=== PATIENT | female | born 1950 | race Caucasian/White ===

== ENCOUNTER → 2016-07-12 | Outpatient (CLI) | payer OTHER ==
[~2016-07-12] MED LIST: ADVIN25/60 INH; ASPI81TA21 PO; CEFD300C2 PO; CZR50 PO; LOSA1TAB38 PO; METO1TAB54 PO; NRV5 PO; OMEP20CA9 PO; ONDA4TAB7 SL; OXGN; PRED5PAK3 PO; TNR50 PO; UMEC1AER INH; VNTHFA/IN INH
[2016-07-12 12:57] LABS: BLOOD UREA NITROGEN 10 mg/dl (7-18); BUN/CREATININE RATIO 15.7 (10-20); CARBON DIOXIDE 25 mmol/L (21-32); CHLORIDE 98 mmol/L (98-107); CREATININE 0.61 mg/dl (0.60-1.20); GLUCOSE 99 mg/dl (70-99); SODIUM 132 mmol/L (136-145)
--- NOTE | 2016-07-19 11:22 | CODING QUERY MEDICAL NECESSITY ---
SUPPORTING DIAGNOSIS NEEDED Dr. Hanna, A supporting diagnosis is required for the test/procedure performed on this patient in order for us to be reimbursed by the patient's insurance. Please provide a supporting diagnosis for the following test/procedure listed below next to the test name along with your signature. *If there is no additional diagnosis for this patient that would support the following test/procedure please document that below next to the test/procedure. Test(s)/Procedure(s) that require a supporting diagnosis: * ([id number]) VITAMIN D ASSAY DIAGNOSIS: DATE OF SERVICE: 07/12/16 Provider Signature: Date: Thank you Jacek Torres [facility] Information Management Once completed, please kindly fax back to [phone] For questions please call [phone]
== END | disposition home or self-care (01) ==
LOC: C.LABPVFM 09:40
PROVIDERS: ATTEND Nurse Practitioner
DX: G57.91 Unspecified mononeuropathy of right lower limb (principal); I10 Essential (primary) hypertension; E55.9 Vitamin D deficiency, unspecified

== ENCOUNTER 2016-11-01 13:15 | Emergency (ER) | payer OTHER ==
[~2016-11-01] VITALS: Ht 152.4 cm; Wt 72.1 kg
[~2016-11-01 13:15] MED LIST changes: -CEFD300C2 PO; -LOSA1TAB38 PO; -OXGN; -UMEC1AER INH; -VNTHFA/IN INH
[2016-11-01 13:23] VITALS: Ht 152.4 cm; Wt 72.1 kg
[2016-11-01] MEDS ORDERED: ACETAMINOPHEN 500 MG TAB PO STA (14:00)
[2016-11-01] MEDS ORDERED: SODIUM CHLORIDE 0.9% 1000ML 1,000 ML IV STA (14:00)
[2016-11-01 14:39] LABS: BASO % 0.2 %; BASO ABS # 0.03 K/uL (0-0.2); COMPLETE YES; EOS % 0.2 %; HEMATOCRIT 41.3 % (37-47); IG% 0.8 %; LYMPH % 3.3 %; LYMPH ABS # 0.44 K/uL (1.2-3.4); MEAN CORPUSCULAR HEMOGLOBIN 29.3 pg (25-34); MEAN CORPUSCULAR HGB CONC 32.9 g/dl (32-36); MEAN PLATELET VOLUME 10.1 fL (7.4-10.4); MONO % 4.7 %; NEUT % 90.8 %; PLATELET COUNT 166 K/uL (130-400); RED BLOOD COUNT 4.64 M/uL (4.2-5.4); WHITE BLOOD COUNT 13.14 K/uL (4.8-10.8)
[2016-11-01] MEDS ORDERED: VNTHFA/IN INH (14:43)
[2016-11-01] MEDS ORDERED: LOSA1TAB38 PO (14:43)
[2016-11-01] MEDS ORDERED: OXGN (14:43)
[2016-11-01] MEDS ORDERED: UMEC1AER INH (14:43)
[2016-11-01 14:52] LABS: INR 1.1 (0.9-1.1); PARTIAL THROMBOPLASTIN RATIO 1.1; PROTHROMBIN TIME (PATIENT) 11.9 SECONDS (9.0-12.0)
--- NOTE | 2016-11-01 14:58 | DIAGNOSTIC IMAGING REPORT ---
CHEST ONE VIEW PORTABLE CLINICAL HISTORY: Weakness COMPARISON STUDY: 04/12/2016 FINDINGS: The heart is borderline enlarged. There is been resolution of previous identified left midlung zone airspace opacities. Increased density visualized towards the lung bases, likely relates to chest wall artifact.[ If there is clinical concern over the presence of a lower lobe pneumonia, then a PA and lateral study should be obtained in follow-up. There is no failure. IMPRESSION: 1. Interval resolution of the left upper lobe pneumonia 2. Borderline cardiomegaly 3. Increased attenuation of lung bases, likely related to technical factors. Electronically signed by: Cyrus Benavides M.D. 11/01/2016 2:56 PM Dictated Date/Time: 11/01/2016 2:55 PM
[2016-11-01 15:03] LABS: BUN/CREATININE RATIO 17.5 (10-20); CALCIUM 8.9 mg/dl (8.5-10.1); CREATININE 0.69 mg/dl (0.60-1.20); MAGNESIUM 1.7 mg/dl (1.8-2.4); POTASSIUM 3.1 mmol/L (3.5-5.1)
[2016-11-01 15:11] LABS: CKMB/CK RATIO 2.4 (0-3.0); THYROID STIMULATING HORMONE 2.43 uIu/ml (0.300-4.500)
[2016-11-01 15:39] VITALS: O2SAT 93
[2016-11-01] MEDS ORDERED: SODIUM CHLORIDE 0.9% 500ML 500 ML IV STA (17:24)
--- NOTE | 2016-11-01 18:24 | DIAGNOSTIC IMAGING REPORT ---
CT OF THE ABDOMEN AND PELVIS WITHOUT CONTRAST, STONE PROTOCOL CLINICAL HISTORY: Right flank pain. COMPARISON STUDY: CT of the abdomen and pelvis October 26, 2009. TECHNIQUE: Helical axial images of the abdomen and pelvis were obtained without IV or oral contrast according to renal stone protocol. FINDINGS: Visualized portions of the the lower chest partially visualize lingular opacity which favors atelectasis. The heart is moderately enlarged. There is no pneumatosis, free air or portal venous gas. There is no biliary ductal dilatation status post cholecystectomy. There is no evidence for a bowel obstruction. The appendix is normal. There is no ascites. No enlarged lymph nodes are identified on this unenhanced exam. The bladder is moderately distended. There is mild bilateral collecting system dilatation. There is mild bilateral perinephric infiltration, slightly greater on the right. No renal, ureteral or bladder calculi are identified. No suspicious skeletal lesions are identified. IMPRESSION: 1. No urinary calculi identified. Mild bilateral collecting system dilatation which could be related to moderate distention of the bladder. Mild bilateral perinephric infiltration, a nonspecific finding although an infectious process could have this appearance. 2. Moderate cardiomegaly. 3. Partially visualized lingular opacity which favors atelectasis. Electronically signed by: Jarrett Murray M.D. 11/01/2016 6:23 PM Dictated Date/Time: 11/01/2016 6:12 PM
[2016-11-01] MEDS ORDERED: CEFTRIAXONE SOD INJ 1 GM ADDVIAL IV STA (18:45)
[2016-11-01 18:57] VITALS: TEMP 36.9
[2016-11-01 19:10] LABS: URINE APPEARANCE CLEAR (CLEAR); URINE BILIRUBIN NEG (NEG); URINE COLOR YELLOW; URINE EPITHELIAL CELL AUTO 20-30 /lpf (0-5); URINE NITRITE POS (NEG); URINE SPECIFIC GRAVITY 1.007 (1.000-1.030); UROBILINOGEN NEG (NEG)
[2016-11-01 19:12] LABS: MANUAL MICROSCOPIC REQUIRED? NO; REVIEW REQ? NO
[2016-11-01] MEDS ORDERED: CEFD300C2 PO (19:27)
--- NOTE | 2016-11-01 19:34 | EMERGENCY ROOM VISIT NOTE ---
History Report prepared by Leif: Jayme Beatty Under the Supervision of: Dr. Quinten Barone M.D. First contact with patient: 13:35 Chief Complaint: OTHER COMPLAINT Stated Complaint: SICK History of Present Illness The patient is a 66 year old female who presents to the Emergency Room with complaints of persistent diarrhea that began last night. The patient states that she began to experience pain in her right lower flank last night before experiencing chills, shakes, and diarrhea. She notes that she has had at least 5 -6 episodes of diarrhea throughout the day today. Her flank pain has improved at this time, but notes that it feels "sore" from shaking throughout the night. The patient also claimed that she had some urinary irregularities, as it was just "running right out of her" without trying to void. She denies any discomfort while urinating and denies any history of kidney stones. She also denies LOC, headache, fevers, diaphoresis, visual changes, neck pain, chest pain , breathing difficulties, nausea, vomiting, abdominal pain, back pain, melena, hematochezia, urinary symptoms, numbness, weakness, lymphadenopathy, rash, or other complaints. She has a history of COPD. Source of History: patient Onset: One night [employer] Position: other (GI) Quality: other (Diarrhea) Timing: other (Persistent) Associated Symptoms: + back pain, + urinary symptoms Review of Systems See HPI for pertinent positives and negatives. A total of ten systems were reviewed and were otherwise negative. Past Medical & Surgical Medical Problems: (1) COPD (chronic obstructive pulmonary disease) (2) Left upper lobe pneumonia Family History No pertinent family history Social History Smoking Status: Current Every Day Smoker Alcohol Use: none Drug Use: none Marital Status: Occupation Status: employed Current/Historical Medications Scheduled Albuterol Hfa (Ventolin Hfa), 2-4 PUFFS INH Q6H Amlodipine Besylate (Amlodipine Besylate), 10 MG PO QAM Aspirin Enteric Coated (Ecotrin Or Generic), 81 MG PO DAILY Atenolol (Atenolol), 100 MG PO DAILY Cefdinir (Omnicef), 1 CAP PO BID Losartan Potassium (Cozaar), 100 MG PO DAILY Metoclopramide Hcl (Reglan), 5 MG PO ACHS Omeprazole (Prilosec), 20 MG PO DAILY Oxygen (Oxygen), 4 LITERS NA DAILY Umeclidinium-Vilanterol (Anoro Ellipta 62.5-25 Mcg/INH), 1 PUFF INH DAILY Allergies Coded Allergies: Prednisone (Unverified Allergy, Severe, nausea, 11/01/16) Adhesives (Verified Allergy, Unknown, TAPE ALLERGY, 11/01/16) Iodine (Verified Allergy, Unknown, DYSPNEA, 11/01/16) Lisinopril (Verified Allergy, Unknown, 11/01/16) Penicillins (Verified Allergy, Unknown, 11/01/16) Quinolones (Verified Allergy, Unknown, 11/01/16) Codeine (Verified Adverse Reaction, Unknown, NAUSEA, 11/01/16) Physical Exam Vital Signs Date Time Temp Pulse Resp B/P Pulse Ox O2 Delivery O2 Flow Rate FiO2 11/01/16 18:57 36.9 78 18 113/67 94 Nasal Cannula 4.0 11/01/16 17:35 78 24 91 Nasal Cannula 2.0 11/01/16 17:30 77 24 90 11/01/16 17:25 78 25 90 11/01/16 17:20 80 25 91 11/01/16 17:15 77 24 91 11/01/16 17:10 79 25 90 11/01/16 17:05 82 22 91 11/01/16 17:00 83 28 89 11/01/16 16:55 82 26 90 11/01/16 16:50 84 27 92 11/01/16 16:45 82 26 93 11/01/16 16:40 79 25 93 11/01/16 16:39 82 11/01/16 16:35 83 26 94 11/01/16 16:30 85 23 89 11/01/16 16:25 83 28 89 11/01/16 16:20 82 29 89 11/01/16 16:15 83 25 91 11/01/16 16:10 86 25 90 11/01/16 16:05 85 29 90 11/01/16 16:00 87 25 91 11/01/16 15:55 95 23 92 11/01/16 15:44 104/61 11/01/16 15:39 93 Room Air 11/01/16 15:39 37.4 87 34 104/61 95 Room Air 11/01/16 13:23 38.3 99 24 109/69 93 Room Air Physical Exam GENERAL: Awake, alert, uncomfortable appearing. HENT: Normocephalic, atraumatic. Oropharynx unremarkable. EYES: Normal conjunctiva. Sclera non-icteric. NECK: Supple. No nuchal rigidity. FROM. No JVD. RESPIRATORY: Clear to auscultation. CARDIAC: Regular rate, normal rhythm. Extremities warm and well perfused. Pulses equal. ABDOMEN: Soft, non-distended. No tenderness to palpation. No rebound or guarding. No masses. RECTAL: Deferred. MUSCULOSKELETAL: Chest examination reveals no tenderness. The back is symmetrical on inspection without obvious abnormality. There is no CVA tenderness to palpation. No joint edema. BACK: Mild right CVA tenderness. LOWER EXTREMITIES: Calves are equal size bilaterally and non-tender. No edema. No discoloration. NEURO: Normal sensorium. No sensory or motor deficits noted. SKIN: No rash or jaundice noted. Medical Decision & Procedures ER Provider Diagnostic Interpretation: Radiology results as stated below per my review and radiologist interpretation: CHEST ONE VIEW PORTABLE CLINICAL HISTORY: Weakness COMPARISON STUDY: 04/12/2016 FINDINGS: The heart is borderline enlarged. There is been resolution of previous identified left midlung zone airspace opacities. Increased density visualized towards the lung bases, likely relates to chest wall artifact.[ If there is clinical concern over the presence of a lower lobe pneumonia, then a PA and lateral study should be obtained in follow-up. There is no failure. IMPRESSION: 1. Interval resolution of the left upper lobe pneumonia 2. Borderline cardiomegaly 3. Increased attenuation of lung bases, likely related to technical factors. Electronically signed by: Cyrus Benavides M.D. 11/01/2016 2:56 PM Dictated Date/Time: 11/01/2016 2:[address] scan consistent with pyelonephritis. Laboratory Results 11/01/16 14:15 Red Blood Count 4.64, Mean Corpuscular Volume 89.0, Mean Corpuscular Hemoglobin 29.3, Mean Corpuscular Hemoglobin Concent 32.9, Mean Platelet Volume 10.1, Neutrophils (%) (Auto) 90.8, Lymphocytes (%) (Auto) 3.3, Monocytes (%) (Auto) 4.7, Eosinophils (%) (Auto) 0.2, Basophils (%) (Auto) 0.2, Neutrophils # (Auto) 11.92, Lymphocytes # (Auto) 0.44, Monocytes # (Auto) 0.62, Eosinophils # (Auto) 0.02, Basophils # (Auto) 0.03 11/01/16 14:15 Test 11/01/16 14:15 11/01/16 14:31 11/01/16 18:50 White Blood Count 13.14 K/uL (4.8-10.8) Red Blood Count 4.64 M/uL (4.2-5.4) Hemoglobin 13.6 g/dL (12.0-16.0) Hematocrit 41.3 % (37-47) Mean Corpuscular Volume 89.0 fL (80-100) Mean Corpuscular Hemoglobin 29.3 pg (25-34) Mean Corpuscular Hemoglobin Concent 32.9 g/dl (32-36) Platelet Count 166 K/uL (130-400) Mean Platelet Volume 10.1 fL (7.4-10.4) Neutrophils (%) (Auto) 90.8 % Lymphocytes (%) (Auto) 3.3 % Monocytes (%) (Auto) 4.7 % Eosinophils (%) (Auto) 0.2 % Basophils (%) (Auto) 0.2 % Neutrophils # (Auto) 11.92 K/uL (1.4-6.5) Lymphocytes # (Auto) 0.44 K/uL (1.2-3.4) Monocytes # (Auto) 0.62 K/uL (0.11-0.59) Eosinophils # (Auto) 0.02 K/uL (0-0.5) Basophils # (Auto) 0.03 K/uL (0-0.2) RDW Standard Deviation 43.9 fL (36.4-46.3) RDW Coefficient of Variation 13.4 % (11.5-14.5) Immature Granulocyte % (Auto) 0.8 % Immature Granulocyte # (Auto) 0.11 K/uL (0.00-0.02) Prothrombin Time 11.9 SECONDS (9.0-12.0) Prothromb Time International Ratio 1.1 (0.9-1.1) Activated Partial Thromboplast Time 27.8 SECONDS (21.0-31.0) Partial Thromboplastin Ratio 1.1 Anion Gap 8.0 mmol/L (3-11) Est Creatinine Clear Calc Drug Dose 71.1 ml/min Estimated GFR () 105.1 Estimated GFR (Non- 90.7 BUN/Creatinine Ratio 17.5 (10-20) Calcium Level 8.9 mg/dl (8.5-10.1) Magnesium Level 1.7 mg/dl (1.8-2.4) Total Bilirubin 0.7 mg/dl (0.2-1) Direct Bilirubin 0.2 mg/dl (0-0.2) Aspartate Amino Transf (AST/SGOT) 8 U/L (15-37) Alanine Aminotransferase (ALT/SGPT) 17 U/L (12-78) Alkaline Phosphatase 80 U/L (45-117) Total Creatine Kinase 38 U/L (26-192) Creatine Kinase MB 0.9 ng/ml (0.5-3.6) Creatine Kinase MB Ratio 2.4 (0-3.0) Troponin I 0.020 ng/ml (0-0.045) Pro-B-Type Natriuretic Peptide 938 pg/ml (0-900) Total Protein 6.7 gm/dl (6.4-8.2) Albumin 3.6 gm/dl (3.4-5.0) Lipase 116 U/L (73-393) Thyroid Stimulating Hormone (TSH) 2.430 uIu/ml (0.300-4.500) Bedside Lactic Acid Venous 0.82 mmol/L (0.90-1.70) Urine Color YELLOW Urine Appearance CLEAR (CLEAR) Urine pH 5.0 (4.5-7.5) Urine Specific [place] 1.007 (1.000-1.030) Urine Protein NEG (NEG) Urine Glucose (UA) NEG (NEG) Urine Ketones TRACE (NEG) Urine Occult Blood TRACE (NEG) Urine Nitrite POS (NEG) Urine Bilirubin NEG (NEG) Urine Urobilinogen NEG (NEG) Urine Leukocyte Esterase TRACE (NEG) Urine WBC (Auto) 5-10 /hpf (0-5) Urine RBC (Auto) 0-4 /hpf (0-4) Urine Hyaline Casts (Auto) 0 /lpf (0-5) Urine Epithelial Cells (Auto) 20-30 /lpf (0-5) Urine Bacteria (Auto) 4+ (NEG) Laboratory results reviewed by me Medications Administered Medications (Trade) Dose Ordered Sig/Joselyn Route Start Time Stop Time Status Last Admin Dose Admin Sodium Chloride (Nss 1000ml) 1,000 ml @ 999 mls/hr Q1H1M STAT IV 11/01/16 14:00 11/01/16 15:00 DC 11/01/16 14:00 999 MLS/HR Acetaminophen 1000 mg 1,000 mg NOW STAT PO 11/01/16 14:00 11/01/16 14:01 DC 11/01/16 14:25 1,000 MG Sodium Chloride (Nss 500ml) 500 ml @ 999 mls/hr Q31M STAT IV 11/01/16 17:24 11/01/16 17:54 DC 11/01/16 18:47 999 MLS/HR Ceftriaxone Sodium (Rocephin Inj) 1 gm NOW STAT IV 11/01/16 18:45 11/01/16 18:46 DC 11/01/16 18:56 1 GM ECG Indication: back/shoulder pain Rate (beats per minute): 86 Rhythm: normal sinus Findings: no acute ischemic change, no ectopy ED Course 1346: The patient was evaluated in room B10. A complete history and physical exam was performed. 1400: Ordered Tylenol 1000 mg PO, Sodium Chloride 1000 mL @ 999 mL/hr IV. 1724: Ordered Sodium Chloride 500 mL @ 999 mL/hr IV. 1910: The patient was reassessed. She was informed. Rocephin was ordered. She 'll be treated as an outpatient with Omnicef. Medical Decision Triage Nursing notes reviewed. The patient's presentation and history were concerning for flank pain and fever. Etiologies such as UTI, renal colic, appendicitis, diverticulitis, mesenteric ischemia, aortic pathology, infections, inflammatory bowel disease, PUD, biliary pathology, infectious diarrhea, colitis, as well as others were entertained. The patient was evaluated. She was doing relatively well. She has a mild flank tenderness. She has a history of UTI. She has a history of pneumonia. Chest x-ray was unremarkable. Her CBC showed a mild leukocytosis. Chemistry panel is unremarkable. Urinalysis was very concerning for infection. CT scan was consistent with pyelonephritis. The patient was able to drain her bladder after CT imaging. She is given IV Rocephin after review indicates she has tolerated this in the past. She has also had Omnicef as an outpatient. The patient desired to be discharged. She did not want to stay in the hospital. This would give her the best chance at staying out of the hospital however she worsens she agrees to come back to the emergency department. By the evaluation outlined above other emergent etiologies such as those listed in the differential, as well as others, were deemed relatively unlikely. The patient was informed about the findings as listed above. All questions were answered and she was pleased with the treatment. Return instructions were outlined and the patient was discharged in stable condition. The patient was referred to her PCP for follow-up for a recheck of the current condition. The chart was completed utilizing [employer] Speech voice recognition software. Grammatical errors, random word insertions, pronoun errors, and incomplete sentences are an occasional consequence of this system due to software limitations, ambient noise, and hardware issues. Any formal questions or concerns about the content, text, or information contained within the body of this dictation should be directly addressed to the physician for clarification. Impression Primary Impression: Pyelonephritis Scribe Attestation The scribe's documentation has been prepared under my direction and personally reviewed by me in its entirety. I confirm that the note above accurately reflects all work, treatment, procedures, and medical decision making performed by me. Departure Information Dispostion Home / Self-Care Prescriptions Cefdinir (OMNICEF) 300 Mg Cap 1 CAP PO BID for 7 Days, #14 CAP Prov: Quinten Baroen MD 11/01/16 Referrals Dia Hanna C.R.N.P (PCP) Patient Instructions My [facility] Additional Instructions UTI INSTRUCTIONS: Omnicef 300mg: one capsule 2 times a day for 7 days. All antibiotics can cause diarrhea. If this occurs and you feel worse or it does not resolve in 1-2 days follow up with your doctor or return to the Emergency Department as this could be signs of serious underlying problems. Any medication can cause an allergic reaction, stop the pills immediately and return to the ER for rash, hives, breathing difficulties, or swelling. Ibuprofen(Motrin, Advil) may be used for fever or pain. Use 600mg every six hours as needed. Take with food. Avoid using more than 2400mg in a 24 hour period. Do not use 2400mg per day for more than three consecutive days without physician direction. Prolonged inappropriate use can lead to stomach upset or ulcers. (AND/OR) Acetaminophen(Tylenol) may be used for fever or pain. Use 1000mg every six hours as needed. Avoid using more than 4000mg in a 24 hour period. Rest and drink plenty of fluids as tolerated. Slow sips of water or sports drinks are recommended instead of large amounts all at once. Continue current medications. Once your stomach is settled start with a clear liquid diet (jello, soup broth, etc.) and then advance as tolerated. You should avoid full, heavy meals for about 24 hrs from the time your symptoms resolved. Return to the ER immediately for worsening or persistent abdominal pain, vomiting, fevers, chest pains, difficulty breathing, black or bloody stools, worsening of your condition, or as needed. Follow up with your primary physician Saturday for a recheck of your current condition.
[2016-11-01 19:51] VITALS: BP 136/66; PULSE 82; O2SAT 90
== END 2016-11-01 19:51 | disposition home or self-care (01) ==
LOC: C.EDB 13:16
DX: N11.1 Chronic obstructive pyelonephritis (principal); J44.9 Chronic obstructive pulmonary disease, unspecified; F17.200 Nicotine dependence, unspecified, uncomplicated; Z79.82 Long term (current) use of aspirin; Z79.899 Other long term (current) drug therapy; Z88.0 Allergy status to penicillin; Z88.5 Allergy status to narcotic agent; Z88.8 Allergy status to other drugs, medicaments and biological substances; Z91.09 Other allergy status, other than to drugs and biological substances

== ENCOUNTER → 2016-11-15 | Outpatient (CLI) | payer OTHER ==
[~2016-11-15] MED LIST changes: -ADVIN25/60 INH; -CZR50 PO; +LOSA1TAB38 PO; -ONDA4TAB7 SL; +OXGN; -PRED5PAK3 PO; +UMEC1AER INH; +VNTHFA/IN INH
[2016-11-15 12:41] LABS: CHOLESTEROL/HDL RATIO 3.1
== END | disposition home or self-care (01) ==
LOC: C.LABPVFM 07:45
PROVIDERS: ATTEND Nurse Practitioner
DX: I10 Essential (primary) hypertension (principal); E55.9 Vitamin D deficiency, unspecified

== ENCOUNTER → 2016-11-16 | Outpatient (CLI) | payer OTHER ==
[2016-11-16 13:19] LABS: LYME DISEASE AB IGG NEG (NEG)
[2016-11-16 13:22] LABS: LYME DISEASE AB IGM NEG (NEG)
--- NOTE | 2016-11-23 10:26 | CODING QUERY MEDICAL NECESSITY ---
CQSUPPORTING DIAGNOSIS NEEDED A supporting diagnosis is required for the test/procedure performed on this patient in order for us to be reimbursed by the patient's insurance. Please provide a supporting diagnosis for the following test/procedure listed below next to the test name along with your signature. *If there is no additional diagnosis for this patient that would support the following test/procedure please document that below next to the test/procedure. Test(s)/Procedure(s) that require a supporting diagnosis: DOS 11/16/16 VITAMIN B12 Provider Signature: Date: Thank you Erica Veras [employer] Information Management Once completed, please kindly fax back to [phone] For questions please call [phone]
== END | disposition home or self-care (01) ==
LOC: C.LABPVFM 09:07
PROVIDERS: ATTEND Nurse Practitioner
DX: I10 Essential (primary) hypertension (principal); G57.91 Unspecified mononeuropathy of right lower limb; G57.92 Unspecified mononeuropathy of left lower limb; E55.9 Vitamin D deficiency, unspecified; R29.898 Other symptoms and signs involving the musculoskeletal system

== ENCOUNTER → 2016-11-21 | Outpatient (CLI) | payer OTHER ==
[2016-11-21 12:40] LABS: URINE APPEARANCE CLEAR (CLEAR); URINE BILIRUBIN NEG (NEG); URINE COLOR YELLOW; URINE NITRITE NEG (NEG); URINE PH 5.5 (4.5-7.5); URINE SPECIFIC GRAVITY 1.005 (1.000-1.030); UROBILINOGEN NEG (NEG); ZZUR CULT IF INDIC CLEAN CATCH NO
[2016-11-21 12:58] LABS: MANUAL MICROSCOPIC REQUIRED? NO; REVIEW REQ? YES
[2016-11-21 13:24] LABS: URINE EPITHELIAL CELL AUTO 0-5 /lpf (0-5)
== END | disposition home or self-care (01) ==
LOC: C.LABPVFM 09:39
PROVIDERS: ATTEND Nurse Practitioner
DX: N10 Acute pyelonephritis (principal)

== ENCOUNTER → 2016-12-21 | Outpatient (CLI) | payer OTHER ==
--- NOTE | 2016-12-21 15:22 | MAMMOGRAPHY REPORT ---
BILATERAL DIGITAL SCREENING MAMMOGRAM TOMOSYNTHESIS WITH CAD: 12/21/2016 CLINICAL HISTORY: Routine screening. TECHNIQUE: Breast tomosynthesis in addition to standard 2D mammography was performed. Current study was also evaluated with a Computer Aided Detection (CAD) system. COMPARISON: Comparison is made to exams dated: 06/22/2016 mammogram, 12/16/2015 mammogram, 12/09/2015 mammogram, 07/03/2012 mammogram - [facility], 07/23/2005 mammogram, and 01/12/2005 renata mogram. BREAST COMPOSITION: There are scattered areas of fibroglandular density in both breasts. FINDINGS: No suspicious masses, calcifications, or areas of architectural distortion are noted in ei ther breast. There has been no significant interval change compared to prior exams. Circumscribed be nign-appearing mass in the left upper inner quadrant is not significantly changed, and was shown to r epresent a benign cyst on prior ultrasound exams. A linear scar marker denotes a scar on the right u pper inner breast. Scattered bilateral benign-appearing calcifications are not significantly changed . IMPRESSION: ACR BI-RADS CATEGORY 2: BENIGN There is no mammographic evidence of malignancy. A 1 year screening mammogram is recommended. The pa tient will receive written notification of the results. Approximately 10% of breast cancers are not detected with mammography. A negative mammographic report should not delay biopsy if a clinically suggestive mass is present. Soledad Allred M.D. /:12/21/2016 14:11:02 Asbestos Microscopist: Jessy BARNETT(Zach)(Qian), [facility] letter sent: Normal 1/2 BI-RADS Code: ACR BI-RADS Category 2: Benign
== END | disposition home or self-care (01) ==
LOC: C.MAMM 09:38
PROVIDERS: ATTEND Nurse Practitioner
DX: Z12.31 Encounter for screening mammogram for malignant neoplasm of breast (principal)

== ENCOUNTER → 2017-07-16 | Outpatient (CLI) | payer OTHER ==
[2017-07-16 12:48] LABS: BLOOD UREA NITROGEN 8 mg/dl (7-18); CALCIUM 10.2 mg/dl (8.5-10.1); CARBON DIOXIDE 30 mmol/L (21-32); CHOLESTEROL 240 mg/dl (0-200); CREATININE 0.64 mg/dl (0.60-1.20); GLUCOSE 103 mg/dl (70-99); POTASSIUM 3.7 mmol/L (3.5-5.1); SODIUM 131 mmol/L (136-145)
[2017-07-16 12:51] LABS: LDL CHOLESTEROL CALCULATED 123 mg/dl
== END | disposition home or self-care (01) ==
LOC: C.LABPVFM 10:04
PROVIDERS: ATTEND Nurse Practitioner
DX: E78.00 Pure hypercholesterolemia, unspecified (principal); I10 Essential (primary) hypertension

== ENCOUNTER → 2017-07-24 | Outpatient (CLI) | payer OTHER ==
--- NOTE | 2017-07-24 14:28 | DIAGNOSTIC IMAGING REPORT ---
TWO VIEW CHEST CLINICAL HISTORY: COPD exacerbation. FINDINGS: PA and lateral chest radiographs are compared to study dated 11/01/2016 and correlated with chest CT dated 04/15/2016. The heart is mildly enlarged and there is atherosclerotic calcification of the thoracic aorta. The pulmonary vasculature is noncongested. Emphysema and chronic interstitial thickening are similar to previous. Platelike atelectasis is seen in the left midlung. There is no airspace consolidation or large pleural effusion. No pneumothorax is identified. The skeletal structures are osteopenic. Degenerative change and hyperkyphosis are seen in the thoracic spine. Cholecystectomy clips are noted in the upper abdomen. IMPRESSION: Cardiomegaly and emphysema with no acute cardiopulmonary abnormality. Electronically signed by: Rodri Fernandez M.D. 07/24/2017 2:27 PM Dictated Date/Time: 07/24/2017 2:25 PM
== END | disposition home or self-care (01) ==
LOC: C.RADPV 13:52
PROVIDERS: ATTEND Family Medicine
DX: J44.1 Chronic obstructive pulmonary disease with (acute) exacerbation (principal); I51.7 Cardiomegaly

== ENCOUNTER → 2017-09-11 | Outpatient (CLI) | payer OTHER ==
--- NOTE | 2017-09-11 11:19 | DIAGNOSTIC IMAGING REPORT ---
(CHEST) THORAX WITHOUT CLINICAL HISTORY: J44.9 Chronic obstructive pulmonary disease R05 cough COMPARISON STUDY: 04/15/2016 CT DOSE: 423.96 mGycm TECHNIQUE: CT of the thorax was performed from the thoracic inlet to the lung bases. Images are reviewed in the axial, sagittal, and coronal planes. IV contrast was not administered for this examination. A dose lowering technique was utilized adhering to the principles of ALARA. FINDINGS: Thyroid: Imaged portions of the thyroid gland are normal in appearance. Thoracic aorta: The ascending thoracic aorta measures 36 mm. Heart: The heart is mildly enlarged. There are mild coronary artery calcifications. Lungs and pleural spaces: No pleural effusions are visualized. There is a stable 2.5 mm right middle lobe pulmonary nodule as visualized in image #153/[id number]. There is a 1.5 mm right middle lobe pulmonary nodule as visualized on image #167/281. This was not clearly visualized the prior study. There is a 4.5 mm right middle lobe pulmonary nodule as visualized in image #141/281. This was not clearly visualized the prior study. There is a 1.5 mm left apical pulmonary nodule, unchanged from the preceding study. There are mild emphysematous changes. There is lingular atelectasis. Mediastinum: There is no evidence of pathologic adenopathy by size criteria. Evita: There is no evidence of pathologic adenopathy given the limitations of a noncontrast study Axilla: There is no evidence of pathologic axillary lymphadenopathy Upper abdomen: Partially visualized upper abdominal viscera is within normal limits. Skeletal structures: There are no lytic or blastic osseous lesions. IMPRESSION: 1. Mild pulmonary emphysema 2. Lingular atelectasis 3. Scattered solid subcentimeter pulmonary nodules. A 4.5 mm right middle lobe pulmonary nodule was not clearly visualized in the preceding study. 6 month follow-up is recommended. Electronically signed by: Cyrus Benavides M.D. 09/11/2017 11:17 AM Dictated Date/Time: 09/11/2017 11:10 AM
== END | disposition home or self-care (01) ==
LOC: C.CTS 10:52
PROVIDERS: ATTEND Internal Medicine Pulmonary Disease
DX: J44.9 Chronic obstructive pulmonary disease, unspecified (principal); R05 Cough

== ENCOUNTER → 2017-09-17 | Outpatient (CLI) | payer OTHER ==
[2017-09-17 12:26] LABS: BASO % 0.7 %; BASO ABS # 0.06 K/uL (0-0.2); EOS % 3.1 %; EOS ABS # 0.25 K/uL (0-0.5); HEMATOCRIT 41.6 % (37-47); IG# 0.02 K/uL (0.00-0.02); LYMPH ABS # 2.19 K/uL (1.2-3.4); MEAN CELL VOLUME 89.5 fL (80-100); MEAN CORPUSCULAR HEMOGLOBIN 30.1 pg (25-34); MEAN CORPUSCULAR HGB CONC 33.7 g/dl (32-36); MEAN PLATELET VOLUME 10.8 fL (7.4-10.4); MONO ABS # 0.65 K/uL (0.11-0.59); NEUT ABS # 4.93 K/uL (1.4-6.5); PLATELET COUNT 217 K/uL (130-400); RED CELL DISTRIBUTION WIDTH CV 13.8 % (11.5-14.5); RED CELL DISTRIBUTION WIDTH SD 45.2 fL (36.4-46.3)
[2017-09-17 13:16] LABS: ALBUMIN 3.9 gm/dl (3.4-5.0); ALT/SGPT 15 U/L (12-78); AST/SGOT 9 U/L (15-37); BLOOD UREA NITROGEN 8 mg/dl (7-18); CALCIUM 9.3 mg/dl (8.5-10.1); CARBON DIOXIDE 28 mmol/L (21-32); GLUCOSE 106 mg/dl (70-99); POTASSIUM 3.6 mmol/L (3.5-5.1); SODIUM 129 mmol/L (136-145)
[2017-09-17 13:18] LABS: ALKALINE PHOSPHATASE 83 U/L (45-117); TOTAL PROTEIN 7.5 gm/dl (6.4-8.2)
== END | disposition home or self-care (01) ==
LOC: C.LABPVFM 08:48
PROVIDERS: ATTEND Internal Medicine Pulmonary Disease
DX: J44.1 Chronic obstructive pulmonary disease with (acute) exacerbation (principal)

== ENCOUNTER 2017-09-27 07:29 | Day surgery (SDC) | payer OTHER ==
[2017-09-27] VITALS (9 sets, daily range): BP systolic 111–185; BP diastolic 2–85; PULSE 74–101; TEMP 36.5–37.3; O2SAT 92–95; Ht 152.4 cm; Wt 73.0 kg
[~2017-09-27] VITALS: Ht 152.4 cm; Wt 73.0 kg
--- NOTE | 2017-09-27 07:30 | History & Physical Bridge Note ---
H&P Re-Evaluation Bridge Note: I have examined the patient, reviewed the History & Physical and in the interval since the performance of the History & Physical I have noted the following changes of clinical significance: No changes noted
--- NOTE | 2017-09-27 07:31 | Pre Sedation Assessment ---
Pre Sedation Assessment General Date of Sedation: Sep 27, 2017. Pre-Sedation Airway Assessment Smoking Status: Current Every Day Smoker Mallampati Classification: Class II ASA Classification: Class III Procedure Planning Contraindications for Sedation: None Current Medications Reviewed: Yes Notes The planned sedation has been discussed with the patient. Informed Consent was obtained. I have identified the patient, determined the appropriateness of sedation and have assessed the patient immediately prior to the procedure. All medicine(s) and interventions are by my order.
[2017-09-27] MEDS ORDERED: METO100T44 PO (08:21)
--- NOTE | 2017-09-27 09:35 | Post Sedation Assessment ---
Post Sedation Assessment General Date of Sedation Sep 27, 2017. Vital Signs: Vital Signs Past 12 Hours Date Time Temp Pulse Resp B/P (MAP) Pulse Ox O2 Delivery O2 Flow Rate FiO2 09/27/17 08:22 37 81 20 185/83 (117) 95 Room Air Post Procedure Recovery Score Activity: (2) Moves 4 extremities * Respiration: (2) Deep breath/cough Circulation: (2) +/-20% PreAnes Value Oxygen Saturation: (1) O2 needed for >90% Discharge Sedation Level of Care: Fast Track Phase II Post Sedation Plan On clinical assessment, the patient appears to have tolerated the sedation without complications. Patient is recovering as anticipated. Patient will continue to be monitored by nursing and may be discharged when sedation discharge criteria are met per below protocol. Upon Completions of procedure and additional 15 minutes continue every 5 minute vital signs and the P.A.R. score; then discharge to a Phase I or Fast Track to Phase II per the following guidelines: * Discharge Patient to appropriate Phase II area if PAR is 8 or greater or return to pre- procedure baseline. The post - procedure orders will be as directed. * If PAR score is less than 8 or not return to pre-procedure baseline then patient will follow Phase I monitoring till PAR is reached for Phase II. The Phase I may be done in procedure room or may call to secure a Phase I area. * If naloxone or flumazenil are used for reversal, hold in Phase I for an additional 60 -120 minutes before discharge to Phase II. Please call the Sedation Physician to re-evaluate and complete post-note for discharge to Phase II area. Do NOT discharge from procedure sedation or Phase 1 until post- sedation evaluation note is complete by procedure /sedation MD Sedation Discharge Instructions to be given to the patient at discharge to home.
--- NOTE | 2017-09-27 09:37 | [facility] Operative Report ---
Operative Report Operative Date Sep 27, 2017. Pre-Operative Diagnosis Chronic Mucopurulent Bronchitis Post-Operative Diagnosis Same Procedure(s) Performed FOB w BAL Surgeon Dr Ghotra Findings Chronic inflammatory Mucopurulent Bronchitis Complication(s) None Disposition I attest to the content of the Intraoperative Record and any orders documented therein. Any exceptions are noted below.
--- NOTE | 2017-09-27 09:39 | Discharge Instructions ---
Discharge Instructions Date of Service Sep 27, 2017. Admission Reason for Admission: COPD Discharge Discharge Diagnosis / Problem: Chronic Mucopurulent Bronchitis Discharge Goals Goal(s): Diagnostic testing, Therapeutic intervention Activity Recommendations Activity Limitations: resume your previous activity Lifting Limitations: none Exercise/Sports Limitations: none May Resume Sexual Activity: when tolerated Shower/Bathe: no limitations Driving or Machine Use: resume 1 day after discharge None . Current Hospital Diet Patient's current hospital diet: Discharge Diet Recommended Diet: Regular Diet Fluid Restriction: None Procedures Procedures Performed: FOB w BAL Pending Studies Studies pending at discharge: no Laboratory Results Lipid Panel Test 07/16/17 10:10 Range/Units Triglycerides Level 197 H 0-150 mg/dl Cholesterol Level 240 H 0-200 mg/dl HDL Cholesterol 78 mg/dl Cholesterol/HDL Ratio 3.1 LDL Cholesterol, Calculated 123 mg/dl Medical Emergencies . Who to Call and When: Medical Emergencies: If at any time you feel your situation is an emergency, please call 911 immediately. . Non-Emergent Contact Non-Emergency issues call your: [employer] Call Non-Emergent contact if: temperature is above 101 . . "Provider Documentation" section prepared by Omi Ghotra. .
[2017-09-27] MEDS ORDERED: LIDOCAINE HCL 2% LOCAL 50ML VIAL INSTIL ONE (09:47)
[2017-09-27] MEDS ORDERED: LIDOCAINE 4% INH SOLN 4 ML BTL INH ONE (09:47)
[2017-09-27] MEDS ORDERED: OXYMETAZOLINE HCL 0.05% NA SPR 15 ML BTL ONE (09:47)
[2017-09-27] MEDS ORDERED: LEVALBUTEROL 1.25MG/3ML NEB INH ONE (09:47)
[2017-09-27] MEDS ORDERED: FENTANYL CITRATE INJ 50 MCG/1 ML 2 ML VIAL IV ONE (09:47)
[2017-09-27] MEDS ORDERED: HydrALAZINE HCL 20 MG/ML VIAL IV. ONE (09:47)
[2017-09-27] MEDS ORDERED: LIDOCAINE VISCOUS 2% 100ML TOP ONE (09:47)
[2017-09-27] MEDS ORDERED: MIDAZOLAM HCL 5 MG/ML 1 ML VIAL IV ONE (09:47)
--- NOTE | 2017-09-27 10:17 | OPERATIVE REPORT ---
DATE OF OPERATION: 09/27/2017 PROCEDURE: Fiberoptic bronchoscopy with bronchioalveolar lavage. INDICATIONS: Persistent cough/congestion in a chronic smoker refractory to outpatient therapy. ANESTHESIA PREOPERATIVELY: None. ANESTHESIA DURING PROCEDURE: 4 mg IV Versed, 50 mcg IV fentanyl, 20 mL 2% Xylocaine spray above and below the cords, 10 mg IV Apresoline. DESCRIPTION OF THE PROCEDURE: Fiberoptic bronchoscope was inserted into the left naris with minimal difficulty and passed to the level of true vocal cords. The cords appeared to approximate normally with phonation without evidence for lesions or paralysis. Oral candidiasis was seen with whitish plaque involving the mucosa of the false cords and piriform sinuses. There appeared to be a polyp on the left vocal cord. The cords were anesthetized and the scope was passed through the cords into the trachea and right and left tracheobronchial tree. The vida was sharp. The right main stem bronchus was explored initially and no endobronchial lesions were seen. Endoscopic dynamic airway collapse (EDAC) was seen at the takeoff of the vida and right main stem bronchus with approximately 70% obstruction during expiratory maneuver and coughing paroxysms noted. The right upper lobe, the apical posterior and anterior segments, bronchus intermedius with the medial lateral segments of the right middle lobe and all basilar segments of right lower lobe were found to be free of endobronchial lesions with a moderate amount of mucopurulent secretion lavaged from each lobar segment until clear. Chronic inflammatory mucosal change was seen throughout the right tracheobronchial tree with mucus pitting and bronchial crypts and clefts seen. Left tracheobronchial tree was explored and no endobronchial lesions were seen. Left upper lobe, the apical-posterior and anterior segments, lingular subdivision with its respective segmental and subsegmental bronchi and all basilar segments of left lower lobe were free of endobronchial lesions, but a moderate amount of mucopurulent secretion was lavaged from each lobar or segmental bronchus until clear. Same degree of global inflammatory mucosal change was seen. No brushings or biopsies were deemed necessary as no endobronchial lesions were seen. The procedure was terminated. The patient was given a nebulizer treatment with Xopenex 1.25 mg and transferred to the medical treatment unit hemodynamically stable, no signs of respiratory compromise. Initially, patient had a hypertensive response to the procedure and was given 10 mg of IV Apresoline with normalization of the patient's hemodynamics prior to transfer. We will await microbiological and cytologic examination of the bronchial washings. I attest to the content of the Intraoperative Record and any orders documented therein. Any exception s are noted below.
[2017-09-27] MEDS ORDERED: HydrALAZINE HCL 20 MG/ML VIAL ONE (13:35)
[2017-10-01 14:05] LABS: HERPES SIMPLEX VIRUS CULT NOT ISOLATED (NOT ISOLATED)
== END 2017-09-27 12:03 | disposition home or self-care (01) ==
LOC: C.ACU 07:29
PROVIDERS: ATTEND Internal Medicine Pulmonary Disease
DX: J44.9 Chronic obstructive pulmonary disease, unspecified (principal); F17.210 Nicotine dependence, cigarettes, uncomplicated; I10 Essential (primary) hypertension; G51.0 Bell's palsy; Z88.0 Allergy status to penicillin; Z88.2 Allergy status to sulfonamides; Z79.899 Other long term (current) drug therapy; Z79.82 Long term (current) use of aspirin

== ENCOUNTER → 2017-11-11 | Outpatient (CLI) | payer OTHER ==
[~2017-11-11] MED LIST changes: +ASPI-319 PO; -ASPI81TA21 PO; +METO100T44 PO; -TNR50 PO
[2017-11-11 14:13] LABS: BLOOD UREA NITROGEN 10 mg/dl (7-18); CALCIUM 9.1 mg/dl (8.5-10.1); CARBON DIOXIDE 28 mmol/L (21-32); CREATININE 0.63 mg/dl (0.60-1.20); GLUCOSE 104 mg/dl (70-99); SODIUM 129 mmol/L (136-145)
== END | disposition home or self-care (01) ==
LOC: C.LABPVFM 09:10
PROVIDERS: ATTEND Nurse Practitioner
DX: E87.1 Hypo-osmolality and hyponatremia (principal); E83.52 Hypercalcemia

== ENCOUNTER 2022-04-28 02:13 | Inpatient (IN) ==
[2022-04-28 02:53] LABS: Basophils # (auto) 0.03 K/uL (0-0.2); Basophils % (auto) 0.2 %; Eosinophils # (auto) 0.01 K/uL (0-0.50); Eosinophils % (auto) 0.1 %; Hematocrit (blood only) 41.2 % (34.1-44.9); Hemoglobin 13.3 g/dl (12.0-16.0); Immature Granulocytes # (auto) 0.05 K/uL (0.00-0.02); Immature Granulocytes % (auto) 0.4 %; Lymphocytes % (auto) 7.6 %; Mean Corpuscular Hemoglobin 27.9 pg (25.0-34.0); Mean Corpuscular Hgb Conc 32.3 g/dL (32.0-36.0); Mean Corpuscular Volume 86.4 fL (80.0-100.0); Mean Platelet Volume 9.7 fL (9.4-12.3); Monocytes # (auto) 1.59 K/uL (0.24-0.82); Monocytes % (auto) 12.1 %; Neutrophils # (auto) 10.42 K/uL (1.4-6.5); Neutrophils % (auto) 79.6 %; Platelet Count 337 K/uL (130-400); RDW Coefficient of Variation 12.9 % (11.5-14.5); RDW Standard Deviation 40.4 fL (36.4-46.3); Red Blood Count 4.77 M/uL (3.93-5.22)
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
[2022-04-28 03:12] LABS: Prothrombin Time 10.6 Seconds (9.0-12.0)
[2022-04-28 03:16] LABS: Albumin Level 4.1 gm/dl (3.4-5.0); BUN Creatinine Ratio 20.8 (10-20); Bilirubin Direct 0.1 mg/dl (0-0.2); Bilirubin,Total 0.4 mg/dl (0.2-1.0); Calcium 10.5 mg/dl (8.5-10.1); Creatinine Clr Calc Pharmacy 90.1 ml/min; Est GFR (African American) 114.4 ml/min; Est GFR (Non-African American) 98.7 ml/min; Magnesium 2.1 mg/dl (1.7-2.4); Potassium 4.4 mmol/L (3.5-5.1); Total Protein 7.6 gm/dl (6.0-8.3)
[2022-04-28 03:18] LABS: Troponin I High Sensitivity 9.8 pg/ml (0-14)
[2022-04-28 04:02] LABS: Influenza A virus by PCR Negative (Neg); Influenza B virus by PCR Negative (Neg); RSV by PCR Negative (Neg); SARS CoV2 RNA(COVID-19)Cepheid NEGATIVE (Negative)
[2022-04-28] MEDS ORDERED: cefTRIAXone SODIUM 2,000 MG/70 ML BAG IV STA (04:04)
[2022-04-28] MEDS ORDERED: AZITHROMYCIN 500 MG in DEXTROSE 5% 250 ML IV ONE ×2 (04:04→06:30)
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
[2022-04-28] MEDS ORDERED: ACETAMINOPHEN 325 MG TAB PO PRN (06:00)
[2022-04-28] MEDS ORDERED: ONDANSETRON INJ 2 MG/ML 2 ML VIAL IV PRN (06:00)
[2022-04-28] MEDS ORDERED: ALBUTEROL 0.083% NEBU SOLN 3 ML VIAL NEB PRN (06:00)
[2022-04-28] MEDS ORDERED: MAGNESIUM SULFATE / D5W 1 GM/100 ML BAG IV ONE (06:30)
[2022-04-28] MEDS: ALBUT/IPRATROP 3MG/0.5MG NEB 3 ML VIAL NEB SCH ×5 (07:13→23:54)
[2022-04-28] MEDS: FLUTICASONE FUROATE 200MCG 14 PUFFS/INHALER INH SCH (07:46)
[2022-04-28] MEDS: UMECLIDINIUM/VILANTEROL 62.5/25MCG 7 PUFFS/INHALER INH SCH (07:47)
[2022-04-28] MEDS: amLODIPine BESYLATE 5 MG TAB PO SCH (07:48)
[2022-04-28] MEDS: ATORVASTATIN 40 MG TAB PO SCH (07:48)
[2022-04-28] MEDS: PANTOprazole 40 MG TAB PO SCH (07:48)
[2022-04-28] MEDS: ASPIRIN 81 MG ECTAB PO SCH (07:48)
[2022-04-28] MEDS ORDERED: ENOXAPARIN INJ 40 MG/0.4 ML SYR SQ SCH (08:00)
[2022-04-28] MEDS: METOPROLOL SUCC 50MG EXT REL TAB PO SCH (08:28)
[2022-04-28] MEDS: busPIRone 5 MG TAB PO PRN (08:28)
[2022-04-28] MEDS: METOCLOPRAMIDE HCL 10 MG TABLET PO SCH ×4 (08:29→19:52)
[2022-04-28] MEDS: LOSARTAN POTASSIUM 50 MG TAB PO SCH (08:29)
[2022-04-28] MEDS: guaiFENesin 600 MG TABCR PO SCH ×2 (08:29→19:55)
[2022-04-28] MEDS: cloNIDine HCL 0.1 MG TAB PO SCH ×2 (08:29→19:52)
[2022-04-28] MEDS: GABAPENTIN 100 MG CAP PO SCH ×3 (08:29→19:54)
[2022-04-28] MEDS ORDERED: NON-FORMULARY MEDICATION (Fluticasone-Umeclidin-Vilanter [Trelegy Ellipta] 200-62.5-25 mcg INH SCH (09:00)
[2022-04-28] MEDS: methylPREDNISolone 30 MG in SYRINGE 0 ML IV SCH ×3 (11:20→19:56)
[2022-04-28 12:56] LABS: D Dimer 500 ug/L FEU (0-500)
--- NOTE | 2022-04-28 12:57 | XRay Report ---
XR chest 1V portable CLINICAL HISTORY: Sepsis TECHNIQUE: Single frontal radiograph of the chest was obtained. Comparison: Comparison is made to chest radiograph 04/03/2022 FINDINGS: No lines and tubes are seen. Cardiomegaly is noted. The aorta is tortuous. The lungs are clear. No ev idence of pleural effusion or pneumothorax. IMPRESSION: No acute abnormalities and in particular no evidence of pneumonia. ACT 112: Negative or not required by law. Electronically signed by: Marlon Berg M.D. 04/28/2022 12:55 PM
--- NOTE | 2022-04-28 13:25 | Electrocardiogram Report ---
Test Reason : Blood Pressure : / mmHG Vent. Rate : 082 BPM Atrial Rate : 082 BPM P-R Int : 154 ms QRS Dur : 080 ms QT Int : 346 ms P-R-T Axes : 062 020 054 degrees QTc Int : 404 ms Sinus rhythm with PAC's Otherwise normal ECG When compared with ECG of 24-MAR-2021 14:48, No significant change was found Confirmed by Paul Velazquez ([id number] on 04/28/2022 1:24:40 PM Referred By: REFERRED SELF Confirmed By:Paul Velazquez
--- NOTE | 2022-04-28 14:21 | History & Physical Bridge Note ---
Date of Service April 28, 2022 History & Physical Bridge Note I have examined the patient, reviewed the History & Physical and in the interval since the performance of the History & Physical I have noted the following changes of clinical significance: Patient presents with shortness of breath and a CT of the chest with PE protocol initially ordered by the admitting physician. Patient however reports that she had a significant anaphylaxis type reaction in the past And hence I ordered a D-dimer which is 500 which is the upper limits of normal. I proceeded to order VQ scan which is not available till Saturday. After discussion with pharmacy will start patient on subcu Lovenox 30 twice daily dosing Till VQ scan can be completed.
[2022-04-28] MEDS: ENOXAPARIN INJ 30 MG/0.3 ML SYR SQ SCH (19:53)
[2022-04-28] MEDS: MONTELUKAST SODIUM 10 MG TABLET PO SCH (19:57)
[2022-04-29] MEDS: ALBUT/IPRATROP 3MG/0.5MG NEB 3 ML VIAL NEB SCH ×6 (03:11→23:33)
[2022-04-29] MEDS: cefTRIAXone SODIUM 1,000 MG in DEXTROSE 5% 50 ML IV SCH (05:42)
[2022-04-29 06:11] LABS: Hematocrit (blood only) 35.3 % (34.1-44.9); Hemoglobin 11.2 g/dl (12.0-16.0); Mean Corpuscular Hemoglobin 27.6 pg (25.0-34.0); Mean Corpuscular Hgb Conc 31.7 g/dL (32.0-36.0); Mean Corpuscular Volume 86.9 fL (80.0-100.0); Mean Platelet Volume 9.7 fL (9.4-12.3); Platelet Count 278 K/uL (130-400); RDW Coefficient of Variation 12.7 % (11.5-14.5); RDW Standard Deviation 40.5 fL (36.4-46.3); Red Blood Count 4.06 M/uL (3.93-5.22); White Blood Count 7.67 K/ul (4.8-10.8)
[2022-04-29] MEDS: AZITHROMYCIN 250 MG in DEXTROSE 5% 250 ML IV SCH (06:23)
[2022-04-29 06:36] LABS: BUN Creatinine Ratio 26.1 (10-20); Calcium 9.6 mg/dl (8.5-10.1); Est GFR (Non-African American) 100.1 ml/min; Potassium 4.2 mmol/L (3.5-5.1)
[2022-04-29] MEDS: GABAPENTIN 100 MG CAP PO SCH ×3 (07:22→19:56)
[2022-04-29] MEDS: methylPREDNISolone 30 MG in SYRINGE 0 ML IV SCH ×3 (07:22→19:57)
[2022-04-29] MEDS: METOCLOPRAMIDE HCL 10 MG TABLET PO SCH ×4 (07:22→19:58)
[2022-04-29] MEDS: ATORVASTATIN 40 MG TAB PO SCH (07:23)
[2022-04-29] MEDS: ASPIRIN 81 MG ECTAB PO SCH (07:23)
[2022-04-29] MEDS: PANTOprazole 40 MG TAB PO SCH (07:23)
[2022-04-29] MEDS: guaiFENesin 600 MG TABCR PO SCH ×2 (07:23→19:57)
[2022-04-29] MEDS: METOPROLOL SUCC 50MG EXT REL TAB PO SCH (07:23)
[2022-04-29] MEDS: amLODIPine BESYLATE 5 MG TAB PO SCH (07:23)
[2022-04-29] MEDS: LOSARTAN POTASSIUM 50 MG TAB PO SCH (07:23)
[2022-04-29] MEDS: busPIRone 5 MG TAB PO PRN (07:23)
[2022-04-29] MEDS: UMECLIDINIUM/VILANTEROL 62.5/25MCG 7 PUFFS/INHALER INH SCH (07:24)
[2022-04-29] MEDS: ENOXAPARIN INJ 30 MG/0.3 ML SYR SQ SCH ×2 (07:24→19:56)
[2022-04-29] MEDS: FLUTICASONE FUROATE 200MCG 14 PUFFS/INHALER INH SCH (07:24)
[2022-04-29] MEDS: cloNIDine HCL 0.1 MG TAB PO SCH ×2 (07:24→19:55)
[2022-04-29] MEDS: MONTELUKAST SODIUM 10 MG TABLET PO SCH (19:58)
--- NOTE | 2022-04-29 20:08 | Hospitalist Progress Note ---
Date of Service April 29, 2022 Assessment & Plan (1) COPD exacerbation: Plan: 71yo female with COPD (FEV1 47%, mixed restrictive and obstructive pattern), on 4.5L home O2, ongoing tobacco use presents with 3-4 days of productive cough and progressive SOB. Suspect COPD exacerbation, possible developing RLL PNA. Less likely PE. Patient admitted with empiric diagnosis of COPD exacerbation Started on IV steroids Solu-Medrol is being continued Patient placed on supplemental oxygen and continued on bronchodilators Clinical suspicion of PE is low and order was placed for CT of the chest with PE protocol but given patient's prior history of possible anaphylaxis this is being held and patient Continued on anticoagulation with subcu Lovenox 30 twice daily If conditions do not improve in a.m. can obtain VQ scan(D-dimer was in upper limits of normal) and my index of suspicion low -Continue Trelegy Ellipta or formulary equivalent -Continue Azithromycin and Ceftriaxone -Mucinex, Flutter valve and incentive spirometry -Continue Singulair (2) Anxiety and depression: Plan: Chronic -Continue Buspar 10mg po TID PRN (3) Hypertension: Plan: Chronic. Mildly elevated at present -Continue Amlodipine 10mg po daily -Continue Clonidine 0.1mg po BID -Continue Losartan -Continue Metoprolol -Monitor (4) Chronic reflux esophagitis: Plan: Chronic -Protonix 40mg po daily while on steroids F/E/N - Heplock. Monitor electrolytes. Heart healthy diet when respiratory state improves Ppx - Lovenox Code - Full Dispo - Admit to PCU Admission and Anticipated Discharge Date Admission Date: April 28, 2022 Subjective Patient reports that her dyspnea is slightly improved since admission Patient has occasional cough with mucoid expectoration Family at bedside, Physical Exam Physical Exam: Head and ENT no thyroid enlargement trachea midline Cardiovascular S1-S2 are normal no S3 Lungs bilateral air entry slightly decreased at bases with scattered rhonchi Abdomen soft nondistended positive bowel sounds Extremity shows trace edema Neurologically no focal deficits Skin shows no rash no cyanosis Results & Data Results & Data ([facility]) Vital Signs (Past 12 Hours) Vital Signs Temp Pulse Pulse Resp BP Pulse Ox O2 Del Method 04/29/22 19:43 72 16 97 Nasal Cannula 04/29/22 19:41 37.1 C 73 22 126/72 97 Nasal Cannula 04/29/22 16:00 83 04/29/22 15:30 36.9 C 77 22 136/76 93 Nasal Cannula 04/29/22 14:31 75 18 90 Nasal Cannula 04/29/22 11:50 36.7 C 76 22 135/75 93 Nasal Cannula 04/29/22 11:13 66 18 89 L Nasal Cannula O2 Flow Rate 04/29/22 19:43 6 04/29/22 19:41 6 04/29/22 16:00 04/29/22 15:30 5 04/29/22 14:31 6 04/29/22 11:50 5 04/29/22 11:13 6 Laboratory Results Short CBC 04/29/22 Range/Units 05:26 WBC 7.67 (4.8-10.8) K/ul Hgb 11.2 L (12.0-16.0) g/dl Hct 35.3 (34.1-44.9) % Plt Count 278 (130-400) K/uL BMP 04/29/22 05:26 Sodium 131 L Potassium 4.2 Chloride 89 L Carbon Dioxide 40 H BUN 12 Creatinine 0.46 L Glucose 270 H Calcium 9.6 Diagnostic Findings Chest X-Ray 04/28/22 02:35 XR chest 1V portable CLINICAL HISTORY: Sepsis TECHNIQUE: Single frontal radiograph of the chest was obtained. Comparison: Comparison is made to chest radiograph 04/03/2022 FINDINGS: No lines and tubes are seen. Cardiomegaly is noted. The aorta is tortuous. The lungs are clear. No evidence of pleural effusion or pneumothorax. IMPRESSION: No acute abnormalities and in particular no evidence of pneumonia. ACT 112: Negative or not required by law. Electronically signed by: Marlon Berg M.D. 04/28/2022 12:55 PM PG Care Time/CCT Total # of Minutes Spent Total Time Spent with Patient: Total time spent is greater than 50% in coordination of care (as documented) at patient's floor/unit and/or counseling patient: Coding Level of Care Code 69895 Subseq Hosp Care Lvl 2 Diagnoses COPD exacerbation J44.1 Anxiety and depression F41.9; F32.A Hypertension I10 Chronic reflux esophagitis K21.0
[2022-04-29 22:44] LABS: A calco-baum cmplx NotReported Not Detected (NotDetected); Bact fragilis Not Reported Not Detected (NotDetected); C auris Not Reported Not Detected (NotDetected); Calbicans Not Reported Not Detected (NotDetected); Candida glabrata Not Reported Not Detected (NotDetected); Candida krusei Not Reported Not Detected (NotDetected); Cneoformans/gatti Not Reported Not Detected (NotDetected); Cparapsilosis Not Reported Not Detected (NotDetected); Ctropicalis Not Reported Not Detected (NotDetected); E cloacae compx Not Reported Not Detected (NotDetected); Efaecalis Not Reported Not Detected (NotDetected); Efaecium Not Reported Not Detected (NotDetected); Enterobacterales Not Reported Not Detected (NotDetected); Escherichia coli Not Reported Not Detected (NotDetected); H influenzae Not Reported Not Detected (NotDetected); K aerogenes Not Reported Not Detected (NotDetected); Koxytoca Not Reported Not Detected (NotDetected); Kpneumoniae grp Not Reported Not Detected (NotDetected); Lmonocyt Not Reported Not Detected (NotDetected); N meningitidis Not Reported Not Detected (NotDetected); P aeruginosa Not Reported Not Detected (NotDetected); Proteus spp Not Reported Not Detected (NotDetected); Salmonella spp Not Reported Not Detected (NotDetected); Smarcescens Not Reported Not Detected (NotDetected); Staph lugdunensis Not Reported Not Detected (NotDetected); Staph spp. Not Reported DETECTED (NotDetected); Staphaureus Not Reported Not Detected (NotDetected); Staphepi Not Reported DETECTED (NotDetected); Staphylococcus spp. DETECTED (NotDetected); Stenmaltophilia Not Reported Not Detected (NotDetected); Strep agal(GrpB) Not Reported Not Detected (NotDetected); Strep pneum Not Reported Not Detected (NotDetected); Strep pyog (GrpA) Not Reported Not Detected (NotDetected); Strep spp Not Reported Not Detected (NotDetected); mecAC Resistant Gene Not Detected (NotDetected)
[2022-04-29 22:54] LABS: Staphylococcus epidermidis DETECTED (NotDetected)
[2022-04-30] MEDS: ALBUT/IPRATROP 3MG/0.5MG NEB 3 ML VIAL NEB SCH ×6 (02:54→22:29)
[2022-04-30] MEDS: cefTRIAXone SODIUM 1,000 MG in DEXTROSE 5% 50 ML IV SCH (05:22)
[2022-04-30] MEDS: AZITHROMYCIN 250 MG in DEXTROSE 5% 250 ML IV SCH (06:00)
[2022-04-30 06:58] LABS: Hematocrit (blood only) 35.5 % (34.1-44.9); Hemoglobin 11.4 g/dl (12.0-16.0); Mean Corpuscular Hemoglobin 27.5 pg (25.0-34.0); Mean Corpuscular Hgb Conc 32.1 g/dL (32.0-36.0); Mean Corpuscular Volume 85.7 fL (80.0-100.0); Mean Platelet Volume 9.5 fL (9.4-12.3); Platelet Count 264 K/uL (130-400); RDW Coefficient of Variation 12.3 % (11.5-14.5); RDW Standard Deviation 38.7 fL (36.4-46.3); Red Blood Count 4.14 M/uL (3.93-5.22); White Blood Count 10.72 K/ul (4.8-10.8)
[2022-04-30 07:52] LABS: BUN Creatinine Ratio 27.9 (10-20); Calcium 9.2 mg/dl (8.5-10.1); Creatinine Clr Calc Pharmacy 99.1 ml/min; Est GFR (African American) 118.6 ml/min; Est GFR (Non-African American) 102.3 ml/min; Potassium 4.1 mmol/L (3.5-5.1)
[2022-04-30] MEDS: METOCLOPRAMIDE HCL 10 MG TABLET PO SCH ×4 (07:53→20:41)
[2022-04-30] MEDS: amLODIPine BESYLATE 5 MG TAB PO SCH (07:56)
[2022-04-30] MEDS: ATORVASTATIN 40 MG TAB PO SCH (07:57)
[2022-04-30] MEDS: ASPIRIN 81 MG ECTAB PO SCH (07:57)
[2022-04-30] MEDS: cloNIDine HCL 0.1 MG TAB PO SCH ×2 (07:58→20:42)
[2022-04-30] MEDS: ENOXAPARIN INJ 30 MG/0.3 ML SYR SQ SCH ×2 (07:59→20:43)
[2022-04-30] MEDS: FLUTICASONE FUROATE 200MCG 14 PUFFS/INHALER INH SCH (08:02)
[2022-04-30] MEDS: GABAPENTIN 100 MG CAP PO SCH ×3 (08:04→20:41)
[2022-04-30] MEDS: guaiFENesin 600 MG TABCR PO SCH ×2 (08:05→20:42)
[2022-04-30] MEDS: LOSARTAN POTASSIUM 50 MG TAB PO SCH (08:05)
[2022-04-30] MEDS: PANTOprazole 40 MG TAB PO SCH (08:07)
[2022-04-30] MEDS: METOPROLOL SUCC 50MG EXT REL TAB PO SCH (08:07)
[2022-04-30] MEDS: UMECLIDINIUM/VILANTEROL 62.5/25MCG 7 PUFFS/INHALER INH SCH (08:09)
[2022-04-30] MEDS: methylPREDNISolone 30 MG in SYRINGE 0 ML IV SCH (09:18)
--- NOTE | 2022-04-30 13:27 | Hospitalist Progress Note ---
Date of Service April 30, 2022 Assessment & Plan (1) COPD exacerbation: Plan: 71yo female with COPD (FEV1 47%, mixed restrictive and obstructive pattern), on 4.5L home O2, ongoing tobacco use presents with 3-4 days of productive cough and progressive SOB. Suspect COPD exacerbation, possible developing RLL PNA. Less likely PE. Patient admitted with empiric diagnosis of COPD exacerbation Started on IV steroids -Solu-Medrol discontinued today and prednisone started. Anticipate discharge in the morning back home. Patient placed on supplemental oxygen -close to home oxygen 4.5 L/min. Currently on 5 L. And continued on bronchodilators Clinical suspicion of PE was low . -Continue Trelegy Ellipta or formulary equivalent -Continue Azithromycin and Ceftriaxone -Mucinex, Flutter valve and incentive spirometry -Continue Singulair (2) Anxiety and depression: Plan: Chronic, quite euthymic here. -Continue Buspar 10mg po TID PRN (3) Hypertension: Plan: Chronic. Mildly elevated at present -Continue Amlodipine 10mg po daily -Continue Clonidine 0.1mg po BID -Continue Losartan -Continue Metoprolol -Blood pressure control okay for risk factors. Not diabetic (4) Chronic reflux esophagitis: Plan: Chronic -Protonix 40mg po daily while on steroids-we will stop at discharge (5) Chronic hyponatremia: Plan: Sodium hanging around 130-133 for the last year or so. (6) Nicotine dependence: Plan: Will discuss at discharge. Today was my first encounter. (7) Elevated blood sugar: Plan: On Solu-Medrol. Plan Discussed with SONA Jones today. Plan discharge in the morning if remains stable. Admission and Anticipated Discharge Date Admission Date: April 28, 2022 Subjective Feels much better. She says she walked to the bathroom on her own. Just had someone by her side walking with her Lives with , mood is fine, denies nausea/vomiting/chest pain/station dizziness/syncope Longstanding urinary incontinence. Denies leg swelling. Eating fine and states she walked on her own. 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 Psych good insight and normal affect Results & Data Results & Data ([facility]) Vital Signs (Past 12 Hours) Vital Signs Temp Pulse Pulse Resp BP Pulse Ox O2 Del Method 04/30/22 11:03 36.7 C 65 25 H 138/88 98 Nasal Cannula 04/30/22 10:50 70 18 95 Nasal Cannula 04/30/22 08:42 67 04/30/22 08:42 Nasal Cannula 04/30/22 07:47 37 C 82 28 H 158/80 H 93 Nasal Cannula 04/30/22 06:57 71 18 95 Nasal Cannula 04/30/22 02:54 74 18 94 Nasal Cannula 04/30/22 02:45 36.9 C 71 19 136/74 97 Nasal Cannula O2 Flow Rate 04/30/22 11:03 5 04/30/22 10:50 5 04/30/22 08:42 04/30/22 08:42 5 04/30/22 07:47 5 04/30/22 06:57 5 04/30/22 02:54 5 04/30/22 02:45 6 Laboratory Results Abnormal lab results 04/29/22 04/30/22 04/30/22 Range/Units 04:30 05:57 05:57 Hgb 11.4 L (12.0-16.0) g/dl Sodium 130 L (136-145) mmol/L Chloride 87 L (98-107) mmol/L Carbon Dioxide 40 H (21-32) mmol/L Creatinine 0.43 L (0.6-1.2) mg/dl BUN/Creatinine Ratio 27.9 H (10-20) Glucose 284 H (70-99(Fasting)) mg/dl Staphylococcus sp PCR DETECTED A (NotDetected) Staph epidermidis (PCR) DETECTED A (NotDetected) Medications Administered Home Medications Medication Instructions Recorded Confirmed Last Taken aspirin 81 mg tablet,delayed 81 mg PO QAM 03/23/19 04/16/22 04/09/21 07:00 release (Aspir-) cholecalciferol (vitamin D3) 125 5,000 unit PO QAM 03/23/19 04/16/22 04/13/21 07:00 mcg (5,000 unit) tablet (Vitamin D3) fluticasone fur. 200 mcg-umeclid 1 inh inhalation QAM #60 ea 06/21/21 04/16/22 Unknown 62.5 mcg-vilant 25 mcg inhalat.powder (Trelegy Ellipta) clonidine HCl 0.1 mg tablet 0.1 mg PO BID #180 tabs 08/03/21 04/16/22 Unknown metoprolol succinate 100 mg 100 mg PO QAM #90 tabs 08/22/21 04/16/22 Unknown tablet,extended release 24 hr gabapentin 100 mg capsule 100 mg PO DAILY #50 caps 09/26/21 04/16/22 Unknown amlodipine 10 mg tablet 10 mg PO DAILY #90 tabs 10/03/21 04/16/22 Unknown losartan 100 mg tablet 100 mg PO DAILY #90 tabs 10/03/21 04/16/22 Unknown Oxygen Home #1 ea 11/01/21 04/16/22 Unknown M6 oxygen tank with conserving #1 ea 11/02/21 04/16/22 Unknown device Portable Oxygen #1 ea 11/14/21 04/16/22 Unknown omeprazole 20 mg capsule,delayed 20 mg PO BID #180 caps 11/23/21 04/16/22 Unknown release gabapentin 100 mg capsule See Rx Instructions .Route 01/18/22 04/16/22 Unknown .COMPLEX #450 caps bupropion HCl (smoking deter) 150 See Rx Instructions PO BID #60 tabs 01/31/22 04/16/22 Unknown mg tablet,12 hr sustained-release(smoking deterrent) montelukast 10 mg tablet 10 mg PO QPM #30 tabs 01/31/22 04/16/22 Unknown (Singulair) buspirone 10 mg tablet 10 mg PO TID PRN anxiety #90 tabs 02/01/22 04/16/22 Unknown metoclopramide HCl 10 mg tablet 10 mg PO QID nausea and vomiting 03/01/22 04/16/22 Unknown #360 tabs atorvastatin 40 mg tablet 40 mg PO QAM #90 tabs 03/14/22 04/16/22 Unknown gabapentin 100 mg capsule 100 mg PO .complex #20 caps 03/23/22 04/16/22 Unknown albuterol sulfate 90 mcg/actuation See Rx Instructions inhalation 03/29/22 04/16/22 Unknown aerosol inhaler (Ventolin HFA) .COMPLEX PRN Shortness Of Breath #8.5 grams sodium sul 1.479 gram-potas ch See Rx Instructions PO .COMPLEX 03/29/22 04/16/22 Unknown 0.188 gram-magnes sul 0.225 gram #24 tabs tablet (Sutab) albuterol sulfate 2.5 mg/3 mL 2.5 mg (3 mL) inhalation QID PRN 04/02/22 04/16/22 Unknown (0.083 %) solution for nebulization shortness of breath or wheezing #180 mL dexamethasone 4 mg tablet 4 mg PO DAILY #10 tabs 04/06/22 04/16/22 Unknown nystatin 100,000 unit/mL oral 5 ml buccal QID thrush 14 days 04/18/22 Unknown suspension #280 mL azithromycin 250 mg tablet See Rx Instructions PO .COMPLEX #6 04/24/22 04/24/22 Unknown tabs dexamethasone 6 mg tablet 6 mg PO DAILY 5 days #5 tabs 04/24/22 04/24/22 Unknown Active Medications Generic Name Dose Route Start Last Admin Trade Name Freq PRN Reason Stop Dose Admin Albuterol 3 ml 04/28/22 07:00 04/30/22 10:50 Albut/Ipratrop 3mg/0.5mg Neb 3 Ml Vial NEB 05/28/22 06:59 3 ml Q4R [facility] Administration Protocol Amlodipine Besylate 10 mg 04/28/22 09:00 04/30/22 07:56 Amlodipine Besylate 5 Mg Tab PO 05/28/22 08:59 10 mg DAILY [facility] Administration Aspirin 81 mg 04/28/22 09:00 04/30/22 07:57 Aspirin 81 Mg Ectab PO 05/28/22 08:59 81 mg QAM [facility] Administration Atorvastatin Calcium 40 mg 04/28/22 09:00 04/30/22 07:57 Atorvastatin 40 Mg Tab PO 05/28/22 08:59 40 mg QAM [facility] Administration Buspirone HCl 10 mg 04/28/22 06:00 04/29/22 07:23 Buspirone 5 Mg Tab PO 05/28/22 05:59 10 mg TID PRN Administration anxiety Clonidine HCl 0.1 mg 04/28/22 09:00 04/30/22 07:58 Clonidine Hcl 0.1 Mg Tab PO 05/28/22 08:59 0.1 mg BID [facility] Administration Enoxaparin Sodium 30 mg 04/28/22 21:00 04/30/22 07:59 Enoxaparin Inj 30 Mg/0.3 Ml Syr SQ 05/01/22 20:59 30 mg Q12 [facility] Administration Fluticasone Furoate 1 puffs 04/28/22 09:00 04/30/22 08:02 Fluticasone Furoate 200mcg 14 Puffs/Inhaler INH 05/28/22 08:59 1 puffs DAILY [facility] Administration Gabapentin 200 mg 04/28/22 09:00 04/30/22 08:04 Gabapentin 100 Mg Cap PO 05/28/22 08:59 200 mg BID [facility] Administration Gabapentin 100 mg 04/28/22 12:00 04/30/22 11:34 Gabapentin 100 Mg Cap PO 05/28/22 11:59 100 mg DAILY@1200 [facility] Administration Guaifenesin 1,200 mg 04/28/22 09:00 04/30/22 08:05 Guaifenesin 600 Mg Tabcr PO 05/28/22 08:59 1,200 mg Q12 [facility] Administration Azithromycin 250 mg/ Dextrose 252.5 mls @ 125 mls/hr 04/29/22 06:00 04/30/22 08:33 IV 05/06/22 05:59 Infused Q24H [facility] Infusion Ceftriaxone Sodium 1,000 mg/ 60 mls @ 100 mls/hr 04/29/22 06:00 04/30/22 05:58 Dextrose IV 05/06/22 05:59 Infused Q24H [facility] Infusion Protocol Losartan Potassium 100 mg 04/28/22 09:00 04/30/22 08:05 Losartan Potassium 50 Mg Tab PO 05/28/22 08:59 100 mg DAILY [facility] Administration Metoclopramide HCl 10 mg 04/28/22 07:30 04/30/22 11:34 Metoclopramide Hcl 10 Mg Tablet PO 05/28/22 07:29 10 mg ACHS [facility] Administration Metoprolol Succinate 100 mg 04/28/22 09:00 04/30/22 08:07 Metoprolol Succ 50mg Ext Rel Tab PO 05/28/22 08:59 100 mg QAM [facility] Administration Montelukast Sodium 10 mg 04/28/22 21:00 04/29/22 19:58 Montelukast Sodium 10 Mg Tablet PO 05/28/22 20:59 10 mg QPM [facility] Administration Pantoprazole Sodium 40 mg 04/28/22 09:00 04/30/22 08:07 Pantoprazole 40 Mg Tab PO 05/28/22 08:59 40 mg DAILY [facility] Administration Umeclidinium/Vilanterol 1 puffs 04/28/22 09:00 04/30/22 08:09 Umeclidinium/Vilanterol 62.5/25mcg 7 Puffs/Inhaler INH 05/28/22 08:59 1 puffs DAILY [facility] Administration PG Care Time/CCT Total # of Minutes Spent Total Time Spent with Patient: Total time spent is greater than 50% in coordination of care (as documented) at patient's floor/unit and/or counseling patient: Coding Level of Care Code 07443 Subseq Hosp Care Lvl 3 Diagnoses COPD exacerbation J44.1 Anxiety and depression F41.9; F32.A Hypertension I10 Chronic reflux esophagitis K21.0 Chronic hyponatremia E87.1 Nicotine dependence F17.200 Elevated blood sugar R73.9
--- NOTE | 2022-04-30 20:40 | Nuclear Medicine Report ---
NM pul perfusion CLINICAL HISTORY: d dimer elevated plus shortness of breath. COMPARISON STUDY: Chest 04/28/2022. CT lung screening 11/01/2021. TECHNIQUE: Immediately following the intravenous administration of 4.4 mCi of technetium 99 M MAA for the perfusion scan, anterior, oblique, lateral, and posterior views of the chest were obtained. FINDINGS: Near diffuse severely diminished perfusion within the left lung and comparison to the right . No segmental defects within the right lung. IMPRESSION: Near diffuse severely diminished perfusion within the left lung. This is nonspecific but there are no significant abnormalities within the left lung on the prior chest x-ray. Therefore, thi s is concerning for a high probability scan. Follow-up lower extremity venous Dopplers and chest x-ra y recommended for further evaluation. ACT 112: Negative or not required by law. Electronically signed by: Trung Longoria M.D. 04/30/2022 8:38 PM
[2022-04-30] MEDS: MONTELUKAST SODIUM 10 MG TABLET PO SCH (20:41)
[2022-05-01] MEDS: ALBUT/IPRATROP 3MG/0.5MG NEB 3 ML VIAL NEB SCH ×3 (03:33→10:48)
[2022-05-01] MEDS: cefTRIAXone SODIUM 1,000 MG in DEXTROSE 5% 50 ML IV SCH (05:21)
[2022-05-01] MEDS: AZITHROMYCIN 250 MG in DEXTROSE 5% 250 ML IV SCH (06:09)
[2022-05-01 06:39] LABS: Hematocrit (blood only) 36.5 % (34.1-44.9); Hemoglobin 11.5 g/dl (12.0-16.0); Mean Corpuscular Hemoglobin 27.4 pg (25.0-34.0); Mean Corpuscular Hgb Conc 31.5 g/dL (32.0-36.0); Mean Corpuscular Volume 87.1 fL (80.0-100.0); Mean Platelet Volume 9.2 fL (9.4-12.3); Platelet Count 248 K/uL (130-400); RDW Coefficient of Variation 12.7 % (11.5-14.5); RDW Standard Deviation 40.1 fL (36.4-46.3); Red Blood Count 4.19 M/uL (3.93-5.22); White Blood Count 9.99 K/ul (4.8-10.8)
[2022-05-01 07:12] LABS: Calcium 9.2 mg/dl (8.5-10.1); Creatinine Clr Calc Pharmacy 85.7 ml/min; Est GFR (African American) 112.9 ml/min; Est GFR (Non-African American) 97.4 ml/min; Potassium 3.8 mmol/L (3.5-5.1)
[2022-05-01] MEDS: PANTOprazole 40 MG TAB PO SCH (09:51)
[2022-05-01] MEDS: guaiFENesin 600 MG TABCR PO SCH (09:52)
[2022-05-01] MEDS: LOSARTAN POTASSIUM 50 MG TAB PO SCH (09:52)
[2022-05-01] MEDS: METOPROLOL SUCC 50MG EXT REL TAB PO SCH (09:53)
[2022-05-01] MEDS: ASPIRIN 81 MG ECTAB PO SCH (09:53)
[2022-05-01] MEDS: GABAPENTIN 100 MG CAP PO SCH ×2 (09:53→11:34)
[2022-05-01] MEDS: cloNIDine HCL 0.1 MG TAB PO SCH (09:54)
[2022-05-01] MEDS: amLODIPine BESYLATE 5 MG TAB PO SCH (09:54)
[2022-05-01] MEDS: predniSONE 20 MG TAB PO SCH ×2 (09:54→10:59)
[2022-05-01] MEDS: ATORVASTATIN 40 MG TAB PO SCH (09:54)
[2022-05-01] MEDS: ENOXAPARIN INJ 30 MG/0.3 ML SYR SQ SCH (09:55)
[2022-05-01] MEDS: FLUTICASONE FUROATE 200MCG 14 PUFFS/INHALER INH SCH (09:56)
[2022-05-01] MEDS: UMECLIDINIUM/VILANTEROL 62.5/25MCG 7 PUFFS/INHALER INH SCH (09:57)
[2022-05-01] MEDS: METOCLOPRAMIDE HCL 10 MG TABLET PO SCH ×2 (10:53→11:34)
--- NOTE | 2022-05-01 11:44 | Discharge Summary ---
Date of Service May 01, 2022 Admission HPI Per Admitting Provider Berenice Moore is a 71yo female with COPD on 4.5L supplemental O2 - mixed restrictive and obstructive pattern (last PFT in 2018 with FEV1 of 47%, TLC 95%, DLCO 53% ), HTN, HLP, GERD and ongoing tobacco use presenting with SOB. Patient has not been feeling well for over 1 month. She was seen by her PCP on 03/29 with complaint of 2 weeks of weakness, cough and shortness of breath. She was prescribed Levaquin x 7 days and given a refill on her Albuterol. She was recommended to have a CXR but declined. Returned to her PCP on 04/02/22 with some improvement. Her Levaquin was extended for 5 additional days and she was started on PO Dexamethasone 4mg daily. She had a CXR performed on 04/03/22 which revealed chronic findings, no acute process. She was seen again by her PCP on 04/05/22 for followup and was doing well overall. Her dexamethasone was extended for 5 additional days. Patient improved for a short period of time but was seen again by her PCP on 04/24/22 with complaint of productive cough and SOB. She was given Azithromycin x 5 days and Dexamethasone x 5 days which she reports compliance. Patient comes today with productive cough with yellow sputum as well as worsening shortness of breath. She overall feels poorly. Has been using her oxygen at 4.5L. Reports she has been taking her nebs three times daily at home. She denies fever, chills, chest pain, abdominal pain, nausea or vomiting. No additional complaints She was administered a DuoNeb and 125mg of Solumedrol by EMS. In the ER she was found to be tachycardic and tachypneic, saturating 94% on 5L by DC. 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 Psych good insight and normal affect Discharge Data Allergies Allergy/AdvReac Type Severity Reaction Status Date / Time Penicillins Allergy Severe Swelling Verified 04/16/22 09:40 adhesive Allergy Intermediate Tape Verified 04/16/22 09:40 allergy iodine Allergy Intermediate Dyspnea Verified 04/16/22 09:40 latex Allergy Intermediate Blisters Verified 04/16/22 09:40 Sulfa (Sulfonamide Allergy Unknown Verified 04/16/22 09:40 Antibiotics) prednisone AdvReac Severe Nausea Verified 04/16/22 09:40 codeine AdvReac Intermediate Nausea Verified 04/16/22 09:40 lisinopril AdvReac Intermediate Cough Verified 04/16/22 09:40 Quinolones AdvReac Intermediate N/V Verified 04/16/22 09:40 Consultations 04/28/22 04:23 ED Decision to Admit Stat Hospital Course (1) COPD exacerbation: 71yo female with COPD (FEV1 47%, mixed restrictive and obstructive pattern), on 4.5L home O2, ongoing tobacco use presents with 3-4 days of productive cough and progressive SOB. Suspect COPD exacerbation, possible developing RLL PNA. Less likely PE. Patient admitted with empiric diagnosis of COPD exacerbation Started on IV steroids which were stopped 04/30 when she was at baseline respiratory status. Doing well on 4-1/2 L oxygen. Ambulated to the bathroom on her own. Does not like prednisone and has refused it. I do not think she needs any more steroids. I did continue the dexamethasone pills prescribed by her PCP last month for few days. She probably has some left at home. See smoking cessation below (2) Anxiety and depression: Chronic, quite euthymic here. (3) Hypertension: Chronic. Mildly elevated at present -Continue Amlodipine 10mg po daily -Continue Clonidine 0.1mg po BID -Continue Losartan -Continue Metoprolol All these are home meds. -Blood pressure control okay for risk factors. Not diabetic (4) Chronic reflux esophagitis: Home omeprazole resumed (5) Chronic hyponatremia: Sodium hanging around 130-133 for the last year or so. (6) Nicotine dependence: Very eager to quit. She says she does not need any help and can just stop smoking. Smokes 1 pack of cigarettes a day. I did see a prescription for buspirone to quit smoking as an from an outpatient list and have continued that. (7) Elevated blood sugar: (8) Dependence on continuous supplemental oxygen: Plan Discharge home today. I have messaged her primary care providerDia Hanna re her discharge and decision to stop smoking on her own. Total Time Total Time Spent Total Time Spent (In Minutes): 36 Discharge Plan Discharge Items Patient Disposition: Home - Self-Care Reason For Visit: COPD EXACERBATION Discharge Diagnosis: COPD exacerbation Home oxygen dependent Activity: Resume your previous activity Sexual Activity: When tolerated Non-emergency contact: Primary Care Provider Call non-emergency contact if: your symptoms worsen Follow-up/Referrals: Dia Hanna CRNP [Primary Care Provider] - Diet: Regular and Heart Healthy Addtl Attending Provider Instructions: Good luck with stopping smoking. Her biggest medical problem is ongoing single cigarette use. Please get an appointment with your PCP in a week Pending Studies at Discharge: No Stand-Alone Forms: My [employer], Smoking Cessation Medications and DC Order Prescriptions: Continued Trelegy Ellipta 200-62.5-25 mcg blister with device 1 inh inhalation QAM Qty: 60 5RF clonidine HCl 0.1 mg tablet 0.1 mg PO BID Qty: 180 3RF metoprolol succinate 100 mg tablet extended release 24 hr 100 mg PO QAM Qty: 90 3RF gabapentin 100 mg capsule 100 mg PO DAILY Qty: 50 0RF Rx Instructions: TAKE 2 CAPS IN THE AM, 1 CAP AT NOON AND 2 CAPS IN THE EVENING amlodipine 10 mg tablet 10 mg PO DAILY Qty: 90 3RF losartan 100 mg tablet 100 mg PO DAILY Qty: 90 3RF (DME) Oxygen Home Liters Per Minute See Rx Instructions .MEDSUPPLY Qty: 1 0RF Rx Instructions: Oxygen at 4 l/m via n/c continuously. Concentrator, portable tanks, tubing, supplies. Lifetime need. (DME) M6 oxygen tank with conserving device See Rx Instructions .Route .MEDSUPPLY Qty: 1 0RF Rx Instructions: As directed (DME) Portable Oxygen Misc See Rx Instructions .Route Qty: 1 0RF Rx Instructions: Portable Oxygen Concentrator Uses 4 L/min via NC continuously Dx:J44.9; Z99.81 gabapentin 100 mg capsule See Rx Instructions .ROUTE .COMPLEX Qty: 450 3RF Dose Instruction: TAKE 2 CAPSULES IN THE MORNING, 1 CAPSULE AT NOON, AND 2 CAPSULES IN THE EVENING. Rx Instructions: TAKE 2 CAPSULES IN THE MORNING, 1 CAPSULE AT NOON, AND 2 CAPSULES IN THE EVENING. montelukast [Singulair] 10 mg tablet 10 mg PO QPM Qty: 30 2RF bupropion HCl (smoking deter) 150 mg tablet extended release 12 hr See Rx Instructions PO BID Qty: 60 2RF Rx Instructions: 150 PO qd x3 days, then BID x7-12 wk; separate doses by at least 8h, last dose no later than 6pm. Stop smoking after 5-7 days of treatment Trelegy Ellipta 200-62.5-25 mcg blister with device 0RF metoclopramide HCl 10 mg tablet 10 mg PO QID Qty: 360 3RF atorvastatin 40 mg tablet 40 mg PO QAM Qty: 90 3RF Sutab 1.479-0.188- 0.225 gram tablet See Rx Instructions PO .COMPLEX Qty: 24 0RF Rx Instructions: TAKE DIRECTED PER SPLIT DOSE INSTRUCTIONS BIN: [id number] PCN: [employer]: [id number] nystatin 100,000 unit/mL suspension 5 ml buccal QID 14 Days Qty: 280 0RF Rx Instructions: 5mL to buccal mucosa and swish & swallow QID. albuterol sulfate [Ventolin HFA] 90 mcg/actuation HFA aerosol inhaler See Rx Instructions INHALATION .COMPLEX PRN (Reason: Shortness Of Breath) Qty: 8.5 3RF Rx Instructions: 1-2 puffs INHALATION every 4-6 hours PRN; dexamethasone 4 mg tablet 4 mg PO DAILY Qty: 10 0RF omeprazole 20 mg capsule,delayed release(DR/EC) 20 mg PO BID Qty: 180 3RF Rx Instructions: pt aware of increase buspirone 10 mg tablet 10 mg PO TID PRN (Reason: anxiety) Qty: 90 2RF albuterol sulfate 2.5 mg /3 mL (0.083 %) solution for nebulization 2.5 mg inhalation QID PRN (Reason: shortness of breath or wheezing) Qty: 180 6RF aspirin [Aspir-81] 81 mg tablet,delayed release (DR/EC) 81 mg PO QAM cholecalciferol (vitamin D3) [Vitamin D3] 5,000 unit tablet 5,000 unit PO QAM azithromycin 250 mg tablet See Rx Instructions PO .COMPLEX Qty: 6 0RF Rx Instructions: For 250 mg dose pack: take 500 mg today (day 1), then 250 mg for 4 days (days 2-5) PO Discontinued gabapentin 100 mg capsule 100 mg PO .complex Qty: 20 3RF Rx Instructions: Short term until mail order arrives TAKE 2 CAPSULES IN THE MORNING, 1 CAPSULE AT NOON, AND 2 CAPSULES IN THE EVENING. dexamethasone 6 mg tablet 6 mg PO DAILY 5 Days Qty: 5 0RF Discharge Orders: Discharge Order (Routine); Ordered 05/01/22 Ordered By: Jaden Victor Admission Data Admit Date/Time: 04/28/22 04:45 Attending Provider: Jaden Victor Admit Provider: Mindy Joshi Primary Care Provider: Dia Hanna. Other Providers: Mindy Joshi Coding Level of Care Code D/C DAY MANAGEMENT >30 MINS Diagnoses COPD exacerbation J44.1 Anxiety and depression F41.9; F32.A Hypertension I10 Chronic reflux esophagitis K21.0 Chronic hyponatremia E87.1 Nicotine dependence F17.200 Elevated blood sugar R73.9 Dependence on continuous supplemental oxygen Z99.81
== END 2022-05-01 13:08 | disposition home or self-care (01) | DRG 191 ==
LOC: ED 02:13 → 2S 04:45 → SUATTDRO 04:45 → 2S 05:39

== ENCOUNTER 2023-02-19 11:35 | Inpatient (IN) ==
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
[2023-02-19 12:24] LABS: Basophils # (auto) 0.07 K/uL (0.00-0.20); Basophils % (auto) 0.9 %; Eosinophils # (auto) 0.05 K/uL (0.00-0.50); Eosinophils % (auto) 0.6 %; Hematocrit (blood only) 40.2 % (37.0-47.0); Hemoglobin 13.4 g/dl (12.0-16.0); Immature Granulocytes # (auto) 0.03 K/uL (0.01-0.20); Immature Granulocytes % (auto) 0.4 %; Lymphocytes # (auto) 2.35 K/uL (1.20-3.40); Lymphocytes % (auto) 28.6 %; Mean Corpuscular Hgb Conc 33.3 g/dL (32.0-36.0); Mean Corpuscular Volume 84.1 fL (80.0-100.0); Mean Platelet Volume 10.4 fL (9.4-12.4); Monocytes # (auto) 0.73 K/uL (0.11-0.59); Monocytes % (auto) 8.9 %; Neutrophils % (auto) 60.6 %; Platelet Count 181 K/uL (130-400); RDW Coefficient of Variation 13.1 % (11.5-14.5); RDW Standard Deviation 40.5 fL (36.4-46.3); Red Blood Count 4.78 M/uL (4.20-5.40); White Blood Count 8.23 K/ul (4.8-10.8)
[2023-02-19 12:55] LABS: Albumin Globulin Ratio 2.2 (0.9-2); Albumin Level 4.4 gm/dl (3.4-5.0); BUN Creatinine Ratio 10.2 (10-20); Bilirubin,Total 0.7 mg/dl (0.2-1.0); Creatinine Clr Calc Pharmacy 68.1 ml/min; Est GFR (African American) 106.1 ml/min; Est GFR (Non-African American) 91.6 ml/min; Potassium 3.5 mmol/L (3.5-5.1); Total Protein 6.4 gm/dl (6.0-8.3)
--- NOTE | 2023-02-19 12:56 | XRay Report ---
XR chest 1V portable CLINICAL HISTORY: Dyspnea. COMPARISON STUDY: Chest radiograph April 28, 2022. Chest CT November 01, 2021. FINDINGS: Mild elevation of the left hemidiaphragm is unchanged. Left basilar opacity is unchanged. C ardiomediastinal silhouette is stable. There is no evidence for pulmonary edema. IMPRESSION: No acute cardiopulmonary findings. No significant change in appearance of the chest. ACT 112: Negative or not required by law. Electronically signed by: Jarrett Murray M.D. 02/19/2023 12:54 PM
[2023-02-19 13:08] LABS: Appearance Urine Cloudy (Clear); Bacteria Urine Automated 4+ (Negative); Bilirubin Urine Negative (Negative); Blood Urine Negative (Negative); Color Urine Yellow; Epithelial Cell Urine Auto >30 /lpf (0-5); Glucose Urine UA Negative (Negative); Ketones Urine Negative (Negative); Leukocyte Esterase Urine Trace (Negative); Nitrite Urine Positive (Negative); Protein Urine Negative (Negative); RBC Urine Automated 0-4 /hpf (0-4); Specific Gravity Urine 1.004 (1.000-1.030); Urobilinogen Urine Negative (Negative)
[2023-02-19 13:17] LABS: Magnesium 1.9 mg/dl (1.7-2.4)
[2023-02-19] MEDS ORDERED: cefTRIAXone SODIUM 1,000 MG in DEXTROSE 5% 50 ML IV SCH (13:30)
[2023-02-19 13:55] LABS: Adenovirus PCR Not Detected (NotDetected); Bordetella parapertussis PCR Not Detected (NotDetected); Bordetella pertussis PCR Not Detected (NotDetected); Chlamydia pneumoniae PCR Not Detected (NotDetected); Coronavirus 229E PCR Not Detected (NotDetected); Coronavirus CoV-2 (COVID19)PCR Not Detected (NotDetected); Coronavirus HKU1 PCR Not Detected (NotDetected); Coronavirus NL63 PCR Not Detected (NotDetected); Coronavirus OC43PCR Not Detected (NotDetected); Human Metapneumovirus PCR Not Detected (NotDetected); Influenza A PCR Not Detected (NotDetected); Influenza B PCR Not Detected (NotDetected); Mycoplasma pneumoniae PCR Not Detected (NotDetected); Parainfluenza Virus 1 PCR Not Detected (NotDetected); Parainfluenza Virus 2 PCR Not Detected (NotDetected); Parainfluenza Virus 3 PCR Not Detected (NotDetected); Parainfluenza Virus 4 PCR Not Detected (NotDetected); Respiratory Syncytial VirusPCR Not Detected (NotDetected); Rhinovirus/Enterovirus PCR Not Detected (NotDetected)
[2023-02-19 14:35] LABS: Base Excess VBG 2.4 mEq/L; HCO3 VBG 29 mmol/L; Oxygen Saturation VBG 76.5 %; PCO2 VBG 51 mmHg (38-50); PO2 VBG 50 mmHg; pH VBG 7.36 (7.36-7.41)
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
[2023-02-19 17:01] LABS: D Dimer 260 ug/L FEU (0-500)
[2023-02-19] MEDS ORDERED: ALBUT/IPRATROP 3MG/0.5MG NEB 3 ML VIAL NEB STA (18:32)
[2023-02-19] MEDS ORDERED: SODIUM CHLORIDE 0.9% 1,000 ML IV SCH (19:30)
[2023-02-19] MEDS ORDERED: ACETAMINOPHEN 325 MG TAB PO PRN (19:30)
[2023-02-19] MEDS: BUDESONIDE 0.5 MG/2 ML VIAL (PULMICORT) NEB SCH (20:51)
[2023-02-19] MEDS: ALBUT/IPRATROP 3MG/0.5MG NEB 3 ML VIAL NEB SCH ×2 (20:51→23:27)
[2023-02-19] MEDS: FORMOTEROL 20 MCG/2 ML VIAL NEB SCH (20:52)
[2023-02-19] MEDS: cloNIDine HCL 0.1 MG TAB PO SCH (21:14)
[2023-02-19] MEDS: ASPIRIN 81 MG ECTAB PO SCH (21:14)
[2023-02-19] MEDS: METOPROLOL SUCC 50MG EXT REL TAB PO SCH (21:14)
[2023-02-19] MEDS: METOCLOPRAMIDE HCL 10 MG TABLET PO SCH (21:14)
[2023-02-19] MEDS: FAMOTIDINE 40 MG TABLET PO SCH (21:14)
[2023-02-19] MEDS: SUCRALFATE 1 GM TAB PO SCH ×2 (21:14→21:17)
[2023-02-19] MEDS: MONTELUKAST SODIUM 10 MG TABLET PO SCH (21:14)
[2023-02-19] MEDS: ATORVASTATIN 40 MG TAB PO SCH (21:14)
[2023-02-19] MEDS: amLODIPine BESYLATE 5 MG TAB PO SCH (21:14)
[2023-02-19] MEDS: ENOXAPARIN INJ 40 MG/0.4 ML SYR SQ SCH (21:15)
[2023-02-19] MEDS: PANTOprazole 40 MG TAB PO SCH (21:15)
[2023-02-20] MEDS: ALBUT/IPRATROP 3MG/0.5MG NEB 3 ML VIAL NEB SCH ×6 (03:52→22:53)
[2023-02-20] MEDS: methylPREDNISolone 40 MG in SYRINGE 0 ML IV SCH (05:40)
[2023-02-20] MEDS: FORMOTEROL 20 MCG/2 ML VIAL NEB SCH ×2 (07:02→19:42)
[2023-02-20] MEDS: BUDESONIDE 0.5 MG/2 ML VIAL (PULMICORT) NEB SCH ×2 (07:02→19:42)
--- NOTE | 2023-02-20 07:28 | Billing Data ---
Date of Service February 19, 2023 Coding Level of Care Code 46354 INT INP/OBS CARE
[2023-02-20] MEDS: GABAPENTIN 100 MG CAP PO SCH ×3 (07:46→21:15)
[2023-02-20] MEDS: LOSARTAN POTASSIUM 50 MG TAB PO SCH (07:47)
[2023-02-20] MEDS: cloNIDine HCL 0.1 MG TAB PO SCH ×2 (07:47→21:18)
[2023-02-20] MEDS: FAMOTIDINE 40 MG TABLET PO SCH ×2 (07:47→21:17)
[2023-02-20] MEDS: METOCLOPRAMIDE HCL 10 MG TABLET PO SCH ×4 (07:48→21:16)
[2023-02-20] MEDS: SUCRALFATE 1 GM TAB PO SCH ×4 (07:48→21:15)
[2023-02-20] MEDS: PANTOprazole 40 MG TAB PO SCH ×2 (07:48→21:17)
[2023-02-20] MEDS: UMECLIDINIUM BROMIDE 62.5MCG/BLISTER 7 PUFFS/INHALER INH SCH (07:49)
--- NOTE | 2023-02-20 07:49 | Hospitalist Progress Note ---
Date of Service February 20, 2023 Assessment & Plan (1) Acute and chronic respiratory failure with hypoxia: Plan: Pt is a 72 yo female with PMH of COPD on chronic 4L supplemental oxygen, HTN, hyponatremia, and hearing difficulties presenting due to acute hypoxic respira tory failure. Acute hypoxic respiratory failure 2/2 COPD exacerbation: - Patient on 4LNC at baseline, and was on HFNC earlier in admission - CXR without focal consolidation, Biofire negative - D dimer normal, unlikely she has PE - Continue Duonebs q4h scheduled, IV methylpred 40mg daily, Mucinex BID, azithromycin added for anti-inflammatory effect/atypical coverage - Anoro Ellipta daily (equivalent of home Trelegy) - Continue oxygen PRN to keep sat ~90; currently on 5LNC at rest, will need two step prior to discharge to determine needs Hyponatremia - Appears chronic - Na 129 -> 132 with gentle IVF overnight, discontinue further IVF in favor of oral fluids HTN - Hemodynamically stable - Continue home meds; metoprolol 100mg daily, clonidine 0.1mg BID, losartan 100 mg daily, and amlodipine 10 mg daily GERD - Chronic - Continue famotidine 40 mg BID, pantoprazole 40 mg BID Lung cancer screening - pt will need to reschedule her outpatient low dose CT Asymptomatic bacteriuria - received Rocephin in ER, no need to continue to treat, no symptoms and no systemic signs of infection Diet:heart healthy Code:full Dispo:med/surg (2) Acute exacerbation of chronic obstructive pulmonary disease: (3) Hyponatremia: (4) Hypertension: (5) Dependence on continuous supplemental oxygen: (6) GERD (gastroesophageal reflux disease): (7) Tobacco use disorder: Admission and Anticipated Discharge Date Admission Date: February 19, 2023 Subjective No acute overnight events. Notes her breathing is better today but still not back to her normal. She denies chest pain, SOB, nausea, abdominal pain, dysuria, hematuria, urinary urgency. Physical Exam Constitutional: WD/WN, vitals as above Respiratory: diffuse wheezing heard throughout lung villarreal, no rhonchi, fair air movement Cardiovascular: RRR, no murmur, no edema Skin: no rashes, warm and dry Psychiatric: A+Ox3, euthymic affect Results & Data Results & Data Vital Signs (Past 12 Hours) Vital Signs Temp Pulse Pulse Resp BP BP Pulse Ox 02/20/23 07:04 70 24 91 02/20/23 03:36 36.7 C 75 18 128/74 95 02/20/23 03:52 74 25 H 94 02/19/23 23:31 111 H 20 92 02/19/23 23:28 115 H 02/19/23 23:23 02/19/23 22:41 36.7 C 122 H 20 132/77 92 02/19/23 21:18 135 H 28 H 94 02/19/23 19:52 02/19/23 19:52 36.6 C 98 H 21 175/103 H 94 O2 Del Method O2 Flow Rate FiO2 02/20/23 07:04 High Flow Nasal Cannula 30 40 02/20/23 03:36 High Flow Nasal Cannula 02/20/23 03:52 High Flow Nasal Cannula 30 40 02/19/23 23:31 High Flow Nasal Cannula 30 40 02/19/23 23:28 02/19/23 23:23 High Flow Nasal Cannula 02/19/23 22:41 High Flow Nasal Cannula 02/19/23 21:18 High Flow Nasal Cannula 30 40 02/19/23 19:52 Nasal Cannula 6 02/19/23 19:52 Nasal Cannula 6 PG Care Time/CCT Total # of Minutes Spent Total Time Spent with Patient: Total time spent is greater than 50% in coordination of care (as documented) at patient's floor/unit and/or counseling patient: Coding Level of Care Code 25058 SUB INP/OBS CARE 3/50MIN Diagnoses Acute and chronic respiratory failure with hypoxia J96.21 Acute exacerbation of chronic obstructive pulmonary disease J44.1 Hyponatremia E87.1 Hypertension I10 Dependence on continuous supplemental oxygen Z99.81 GERD (gastroesophageal reflux disease) K21.9 Tobacco use disorder F17.200
[2023-02-20 08:07] LABS: Hemoglobin 12.1 g/dl (12.0-16.0); Mean Corpuscular Hemoglobin 27.5 pg (25.0-34.0); Mean Corpuscular Hgb Conc 32.7 g/dL (32.0-36.0); Mean Corpuscular Volume 84.1 fL (80.0-100.0); Mean Platelet Volume 10.2 fL (9.4-12.4); Platelet Count 184 K/uL (130-400); RDW Coefficient of Variation 13.1 % (11.5-14.5); RDW Standard Deviation 40.5 fL (36.4-46.3); White Blood Count 10.95 K/ul (4.8-10.8)
[2023-02-20 08:14] LABS: BUN Creatinine Ratio 17.4 (10-20); Calcium 9.5 mg/dl (8.6-10.3); Creatinine Clr Calc Pharmacy 88.8 ml/min; Est GFR (African American) 115.2 ml/min; Est GFR (Non-African American) 99.4 ml/min; Potassium 3.9 mmol/L (3.5-5.1)
[2023-02-20] MEDS ORDERED: GABAPENTIN 100 MG CAP PO SCH (09:00)
[2023-02-20] MEDS: AZITHROMYCIN 500 MG in DEXTROSE 5% 250 ML IV SCH (09:10)
[2023-02-20] MEDS: ENOXAPARIN INJ 40 MG/0.4 ML SYR SQ SCH (21:14)
[2023-02-20] MEDS: METOPROLOL SUCC 50MG EXT REL TAB PO SCH (21:15)
[2023-02-20] MEDS: guaiFENesin 600 MG TABCR PO SCH (21:16)
[2023-02-20] MEDS: MONTELUKAST SODIUM 10 MG TABLET PO SCH (21:16)
[2023-02-20] MEDS: amLODIPine BESYLATE 5 MG TAB PO SCH (21:17)
[2023-02-20] MEDS: ASPIRIN 81 MG ECTAB PO SCH (21:17)
[2023-02-20] MEDS: ATORVASTATIN 40 MG TAB PO SCH (21:18)
[2023-02-21] MEDS: ALBUT/IPRATROP 3MG/0.5MG NEB 3 ML VIAL NEB SCH ×6 (02:16→22:29)
--- NOTE | 2023-02-21 07:23 | Hospitalist Progress Note ---
Date of Service February 21, 2023 Assessment & Plan (1) Acute and chronic respiratory failure with hypoxia: Plan: Pt is a 72 yo female with PMH of COPD on chronic 4L supplemental oxygen, HTN, hyponatremia, and hearing difficulties presenting due to acute hypoxic respira tory failure. Acute hypoxic respiratory failure 2/2 COPD exacerbation: - Patient on 4LNC at baseline, and was on HFNC earlier in admission, currently on 8LNC - CXR without focal consolidation, will repeat CXR tomorrow - Biofire negative - D dimer normal, unlikely she has PE - Continue Duonebs q4h scheduled, IV methylpred 40mg increased to BID, Mucinex BID, continue azithromycin for anti-inflammatory effect/atypical coverage - Anoro Ellipta daily (equivalent of home Trelegy) - Continue oxygen PRN to keep sat ~90, will need two step prior to discharge to determine needs Hyponatremia - Appears chronic - Na 129 -> 133, no intervention indicated HTN - Hemodynamically stable - Continue home meds; metoprolol 100mg daily, clonidine 0.1mg BID, losartan 100 mg daily, and amlodipine 10 mg daily GERD - Chronic - Continue famotidine 40 mg BID, pantoprazole 40 mg BID Lung cancer screening - pt will need to reschedule her outpatient low dose CT Asymptomatic bacteriuria - received Rocephin in ER, E. coli on culture, no need to continue to treat, no symptoms and no systemic signs of infection Diet:heart healthy Code:full Dispo:med/surg (2) Acute exacerbation of chronic obstructive pulmonary disease: (3) Hyponatremia: (4) Hypertension: (5) Dependence on continuous supplemental oxygen: (6) GERD (gastroesophageal reflux disease): (7) Tobacco use disorder: Admission and Anticipated Discharge Date Admission Date: February 19, 2023 Subjective No overnight events, but this afternoon needing a bit more oxygen, denies SOB but noted to have hypoxia. Denies other complaints. Physical Exam Constitutional: WD/WN, vitals as above Respiratory: diffuse wheezing heard throughout lung villarreal, no rhonchi, fair air movement Cardiovascular: RRR, no murmur, no edema Skin: no rashes, warm and dry Psychiatric: A+Ox3, euthymic affect Results & Data Results & Data Vital Signs (Past 12 Hours) Vital Signs Temp Pulse Resp BP Pulse Ox O2 Del Method O2 Flow Rate 02/21/23 07:19 36.7 C 67 20 143/80 H 89 L Nasal Cannula 5 02/21/23 02:47 36.6 C 63 18 144/76 H 94 Nasal Cannula 4 02/21/23 02:19 64 16 89 L Nasal Cannula 4 02/20/23 21:00 Nasal Cannula 4 02/20/23 22:25 36.8 C 69 18 150/83 H 95 Nasal Cannula 4 02/20/23 22:53 72 16 91 Nasal Cannula 4 02/20/23 19:34 36.7 C 70 18 145/76 H 93 Nasal Cannula 4 02/20/23 19:43 86 20 90 Nasal Cannula 4 PG Care Time/CCT Total # of Minutes Spent Total Time Spent with Patient: Total time spent is greater than 50% in coordination of care (as documented) at patient's floor/unit and/or counseling patient: Coding Level of Care Code 54177 SUB INP/OBS CARE 2/35MIN Diagnoses Acute and chronic respiratory failure with hypoxia J96.21 Acute exacerbation of chronic obstructive pulmonary disease J44.1 Hyponatremia E87.1 Hypertension I10 Dependence on continuous supplemental oxygen Z99.81 GERD (gastroesophageal reflux disease) K21.9 Tobacco use disorder F17.200
[2023-02-21] MEDS: FORMOTEROL 20 MCG/2 ML VIAL NEB SCH ×2 (07:30→19:37)
[2023-02-21] MEDS: BUDESONIDE 0.5 MG/2 ML VIAL (PULMICORT) NEB SCH ×2 (07:31→19:37)
[2023-02-21] MEDS: cloNIDine HCL 0.1 MG TAB PO SCH ×2 (08:33→21:27)
[2023-02-21] MEDS: methylPREDNISolone 40 MG in SYRINGE 0 ML IV SCH ×2 (08:33→21:27)
[2023-02-21] MEDS: PANTOprazole 40 MG TAB PO SCH ×2 (08:34→21:25)
[2023-02-21] MEDS: METOCLOPRAMIDE HCL 10 MG TABLET PO SCH ×4 (08:34→21:23)
[2023-02-21] MEDS: guaiFENesin 600 MG TABCR PO SCH ×2 (08:34→21:24)
[2023-02-21] MEDS: FAMOTIDINE 40 MG TABLET PO SCH ×2 (08:34→21:27)
[2023-02-21] MEDS: LOSARTAN POTASSIUM 50 MG TAB PO SCH (08:35)
[2023-02-21] MEDS: GABAPENTIN 100 MG CAP PO SCH ×3 (08:35→21:26)
[2023-02-21] MEDS: SUCRALFATE 1 GM TAB PO SCH ×4 (08:35→21:24)
[2023-02-21] MEDS: UMECLIDINIUM BROMIDE 62.5MCG/BLISTER 7 PUFFS/INHALER INH SCH (08:37)
[2023-02-21 08:44] LABS: Hemoglobin 13.2 g/dl (12.0-16.0); Mean Corpuscular Hemoglobin 27.4 pg (25.0-34.0); Mean Corpuscular Hgb Conc 32.2 g/dL (32.0-36.0); Mean Corpuscular Volume 85.1 fL (80.0-100.0); Mean Platelet Volume 9.9 fL (9.4-12.4); Platelet Count 198 K/uL (130-400); RDW Coefficient of Variation 13.2 % (11.5-14.5); RDW Standard Deviation 40.7 fL (36.4-46.3); Red Blood Count 4.82 M/uL (4.20-5.40); White Blood Count 13.83 K/ul (4.8-10.8)
[2023-02-21] MEDS: AZITHROMYCIN 500 MG in DEXTROSE 5% 250 ML IV SCH (09:10)
[2023-02-21 09:11] LABS: BUN Creatinine Ratio 14.8 (10-20); Calcium 9.7 mg/dl (8.6-10.3); Creatinine Clr Calc Pharmacy 75.8 ml/min; Est GFR (African American) 109.3 ml/min; Est GFR (Non-African American) 94.3 ml/min; Potassium 3.5 mmol/L (3.5-5.1)
[2023-02-21] MEDS: METOPROLOL SUCC 50MG EXT REL TAB PO SCH (21:24)
[2023-02-21] MEDS: MONTELUKAST SODIUM 10 MG TABLET PO SCH (21:24)
[2023-02-21] MEDS: amLODIPine BESYLATE 5 MG TAB PO SCH (21:25)
[2023-02-21] MEDS: ASPIRIN 81 MG ECTAB PO SCH (21:25)
[2023-02-21] MEDS: ATORVASTATIN 40 MG TAB PO SCH (21:25)
[2023-02-21] MEDS: ENOXAPARIN INJ 40 MG/0.4 ML SYR SQ SCH (21:27)
[2023-02-22] MEDS: ALBUT/IPRATROP 3MG/0.5MG NEB 3 ML VIAL NEB SCH ×4 (02:21→15:01)
[2023-02-22] MEDS: FORMOTEROL 20 MCG/2 ML VIAL NEB SCH (07:42)
[2023-02-22] MEDS: BUDESONIDE 0.5 MG/2 ML VIAL (PULMICORT) NEB SCH (07:42)
[2023-02-22 08:20] LABS: Hematocrit (blood only) 36.2 % (37.0-47.0); Hemoglobin 11.9 g/dl (12.0-16.0); Mean Corpuscular Hemoglobin 27.5 pg (25.0-34.0); Mean Corpuscular Hgb Conc 32.9 g/dL (32.0-36.0); Mean Corpuscular Volume 83.6 fL (80.0-100.0); Platelet Count 173 K/uL (130-400); RDW Standard Deviation 39.5 fL (36.4-46.3); Red Blood Count 4.33 M/uL (4.20-5.40); White Blood Count 7.98 K/ul (4.8-10.8)
--- NOTE | 2023-02-22 08:31 | XRay Report ---
XR chest 1V portable CLINICAL HISTORY: worsening hypoxia TECHNIQUE: Single frontal radiograph of the chest was obtained. Comparison: Comparison is made to chest radiograph 02/19/2023 FINDINGS: No lines and tubes are seen. Calcified aortic knob is seen. Minimal atelectasis is in the right lung base. No evidence of pleural effusion or pneumothorax. IMPRESSION: Minimal atelectasis in the right lung base. Otherwise unremarkable. ACT 112: Negative or not required by law. Electronically signed by: Marlon Berg M.D. 02/22/2023 8:30 AM
[2023-02-22] MEDS: methylPREDNISolone 40 MG in SYRINGE 0 ML IV SCH (08:41)
[2023-02-22] MEDS: UMECLIDINIUM BROMIDE 62.5MCG/BLISTER 7 PUFFS/INHALER INH SCH (08:41)
[2023-02-22] MEDS: FAMOTIDINE 40 MG TABLET PO SCH (08:41)
[2023-02-22] MEDS: cloNIDine HCL 0.1 MG TAB PO SCH (08:41)
[2023-02-22] MEDS: GABAPENTIN 100 MG CAP PO SCH (08:41)
[2023-02-22] MEDS: METOCLOPRAMIDE HCL 10 MG TABLET PO SCH (08:42)
[2023-02-22] MEDS: PANTOprazole 40 MG TAB PO SCH (08:42)
[2023-02-22] MEDS: LOSARTAN POTASSIUM 50 MG TAB PO SCH (08:42)
[2023-02-22] MEDS: SUCRALFATE 1 GM TAB PO SCH (08:42)
[2023-02-22] MEDS: guaiFENesin 600 MG TABCR PO SCH (08:42)
[2023-02-22 08:43] LABS: BUN Creatinine Ratio 20.4 (10-20); Calcium 9.6 mg/dl (8.6-10.3); Creatinine Clr Calc Pharmacy 83.9 ml/min; Est GFR (African American) 112.8 ml/min; Est GFR (Non-African American) 97.3 ml/min; Potassium 4.1 mmol/L (3.5-5.1)
[2023-02-22] MEDS: AZITHROMYCIN 500 MG in DEXTROSE 5% 250 ML IV SCH (09:00)
--- NOTE | 2023-02-22 11:40 | Discharge Summary ---
Date of Service February 22, 2023 Admission HPI Per Admitting Provider Pt is a 72 yo female with PMH of COPD on chronic 4L supplemental oxygen, HTN, hyponatremia, and hearing difficulties presenting due to SOB. Pt states this started ~2 days ago and has been getting progressively worse. She has not been sick and has not been around anyone who has been sick. She denies fevers, chills, nausea, vomiting, and unusual cough. She does endorse diarrhea which is typical for her. She states that the "nosy neighbors" were concerned with her breathing and they called the EMS for her. She received steroids en route to the hospital. Her breathing has improved since getting to the hospital. Pt does note she is a long time smoker (1-1.5 PPD x 43 years) and she continues to smoke. She was due for a lung cancer screening CT yesterday but cancelled d/t her breathing. She denies any recent travel/surgeries and no personal or family hx of blood clots. In the ER, she was placed on high flow NC. Lab work showed no leukocytosis, Hgb of 13.4, and Na 129 (baseline ~130). Her UA showed positive nitrate, trace LE, and 4+ bacteria. Her VBG showed normal pH, mildly elevated CO2 at 51, and PO2 of 50. Respiratory viral panel negative. CXR neg. Principal Diagnosis COPD exacerbation Discharge Exam The patient is awake, alert and oriented 3, well developed and well nourished, normocephalic and atraumatic, lying in bed and in no acute distress. HEENT--PERRL, EOMI, mucous membranes and oropharynx mildly dry Neck--supple. No JVD. No bruits. Thyroid normal, trachea midline, no adenopathy. Heart--normal S1 and S2. No murmurs, rubs or gallops. Lungs--clear bilaterally, no respiratory distress, no accessory muscle use. Abdomen--normal bowel sounds and soft. Mild epigastric and left sided abdominal pain Extremities--no cyanosis or clubbing. No edema. Dermatologic--normal skin turgor, normal color, no abnormal lymph nodes, no rash. Neurologic--cranial nerves II through XII grossly intact. Rheumatologic--normal range of motion. Psychiatric--normal affect. Discharge Data Allergies Allergy/AdvReac Type Severity Reaction Status Date / Time Penicillins Allergy Severe Swelling Verified 01/28/23 15:27 adhesive Allergy Intermediate Tape Verified 01/28/23 15:27 allergy iodine Allergy Intermediate Dyspnea Verified 01/28/23 15:27 latex Allergy Intermediate Blisters Verified 01/28/23 15:27 Sulfa (Sulfonamide Allergy Unknown Verified 01/28/23 15:27 Antibiotics) prednisone AdvReac Severe Nausea Verified 01/28/23 15:27 codeine AdvReac Intermediate Nausea Verified 01/28/23 15:27 lisinopril AdvReac Intermediate Cough Verified 01/28/23 15:27 Quinolones AdvReac Intermediate N/V Verified 01/28/23 15:27 Consultations 02/19/23 15:00 ED Decision to Admit Stat Hospital Course (1) Acute and chronic respiratory failure with hypoxia: Pt is a 72 yo female with PMH of COPD on chronic 4L supplemental oxygen, HTN, hyponatremia, and hearing difficulties presenting due to acute hypoxic respiratory failure. Acute hypoxic respiratory failure 2/2 COPD exacerbation: - Patient on 4LNC at baseline, and was on HFNC earlier in admission, now back to her baseline of 4L round the clock - CXR without focal consolidation, - Biofire negative - D dimer normal, unlikely she has PE - Continue Duonebs q4h scheduled, IV methylpred 40mg increased to BID, Mucinex BID, continue azithromycin for anti-inflammatory effect/atypical coverage - Anoro Ellipta daily (equivalent of home Trelegy) - Continue oxygen PRN to keep sat ~90, -Discharge home on prednisone taper and Azithromycin for 5 days Hyponatremia - Appears chronic - Na 129 -> 133, no intervention indicated HTN - Hemodynamically stable - Continue home meds; metoprolol 100mg daily, clonidine 0.1mg BID, losartan 100 mg daily, and amlodipine 10 mg daily GERD - Chronic - Continue famotidine 40 mg BID, pantoprazole 40 mg BID Lung cancer screening - pt will need to reschedule her outpatient low dose CT Asymptomatic bacteriuria - received Rocephin in ER, E. coli on culture, no need to continue to treat, no symptoms and no systemic signs of infection Diet:heart healthy Code:full Dispo:med/surg (2) Acute exacerbation of chronic obstructive pulmonary disease: (3) Hyponatremia: (4) Hypertension: (5) Dependence on continuous supplemental oxygen: (6) GERD (gastroesophageal reflux disease): (7) Tobacco use disorder: Plan patient says she wants to be discharged home. she is at baseline now Total Time Total Time Spent Total Time Spent (In Minutes): 35 Discharge Plan Discharge Items Patient Disposition: Home - Self-Care Reason For Visit: SOB Discharge Diagnosis: COPD exacerbation Activity: Resume your previous activity Non-emergency contact: Primary Care Provider and Director [employer] Call non-emergency contact if: you have any medication questions Follow-up/Referrals: Dia Hanna CRNP [Primary Care Provider] - 02/28/23 10:30 am Diet: Regular Addtl Attending Provider Instructions: please follow up with your chart computer Pending Studies at Discharge: No Stand-Alone Forms: My [employer], Smoking Cessation Medications and DC Order Prescriptions: New azithromycin 500 mg tablet 500 mg PO DAILY 5 Days Qty: 5 0RF prednisone 10 mg tablet 40 mg PO DAILY 1 Days Qty: 4 0RF prednisone 10 mg tablet 30 mg PO DAILY 1 Days Qty: 3 0RF prednisone 10 mg tablet 20 mg PO DAILY 1 Days Qty: 2 0RF prednisone 10 mg tablet 10 mg PO DAILY 1 Days Qty: 1 0RF Continued (DME) Oxygen Home Liters Per Minute See Rx Instructions .MEDSUPPLY Qty: 1 0RF Rx Instructions: Oxygen at 4 l/m via n/c continuously. Concentrator, portable tanks, tubing, supplies. Lifetime need. (DME) M6 oxygen tank with conserving device See Rx Instructions .Route .MEDSUPPLY Qty: 1 0RF Rx Instructions: As directed (DME) Portable Oxygen Misc See Rx Instructions .Route Qty: 1 0RF Rx Instructions: Portable Oxygen Concentrator Uses 4 L/min via NC continuously Dx:J44.9; Z99.81 clonidine HCl 0.1 mg tablet 0.1 mg PO BID Qty: 180 3RF gabapentin 100 mg capsule See Rx Instructions .ROUTE .COMPLEX Qty: 50 3RF Dose Instruction: TAKE 2 CAPSULES IN THE MORNING, 1 CAPSULE AT NOON, AND 2 CAPSULES IN THE EVENING. Patient Comments: takes PRN Rx Instructions: TAKE 2 CAPSULES IN THE MORNING, 1 CAPSULE AT NOON, AND 2 CAPSULES IN THE EVENING. montelukast [Singulair] 10 mg tablet 10 mg PO QPM Qty: 30 11RF (DME) nebulizer accessories Kit See Rx Instructions .Route Qty: 1 3RF Rx Instructions: As directed (DME) nebulizers [facility] See Rx Instructions .Route Qty: 1 0RF Rx Instructions: Nebulizer and nebulizer kits LON99 -[employer] metoclopramide HCl 10 mg tablet 10 mg PO QID Qty: 360 3RF amlodipine 10 mg tablet 10 mg PO QPM Qty: 90 3RF Trelegy Ellipta 200-62.5-25 mcg blister with device 1 inh inhalation QPM Qty: 60 3RF metoprolol succinate 100 mg tablet extended release 24 hr 100 mg PO QPM Qty: 90 3RF pantoprazole 40 mg tablet,delayed release (DR/EC) 40 mg PO BID 30 Days Qty: 60 5RF sucralfate [Carafate] 1 gram tablet 1 g PO ACHS Qty: 40 0RF Rx Instructions: mix one tablet with 15mls of water to make slurry then drink before meals and at bedtime. hydroxyzine HCl 25 mg tablet 25 mg PO TID PRN (Reason: itching) Qty: 60 5RF albuterol sulfate [Ventolin HFA] 90 mcg/actuation HFA aerosol inhaler See Rx Instructions INHALATION .COMPLEX PRN (Reason: Shortness Of Breath) Qty: 8.5 3RF Rx Instructions: 1-2 puffs INHALATION every 4-6 hours PRN; ipratropium-albuterol 0.5 mg-3 mg(2.5 mg base)/3 mL solution for nebulization 3 ml inhalation ONCE Qty: 3 0RF albuterol sulfate 2.5 mg /3 mL (0.083 %) solution for nebulization 2.5 mg inhalation QID PRN (Reason: shortness of breath or wheezing) Qty: 180 6RF Patient Comments: Pt does not use because it does not work for her famotidine 40 mg tablet 40 mg PO BID Qty: 60 11RF aspirin [Aspir-81] 81 mg tablet,delayed release (DR/EC) 81 mg PO QPM cholecalciferol (vitamin D3) [Vitamin D3] 5,000 unit tablet 5,000 unit PO QPM atorvastatin 40 mg tablet 40 mg PO QPM losartan 100 mg tablet 100 mg PO QAM Discharge Orders: Discharge Order (Routine); Ordered 02/22/23 Ordered By: Marco Antonio Mandel Admission Data Admit Date/Time: 02/19/23 15:49 Attending Provider: Marco Antonio Mandel Admit Provider: Carolyn Long Primary Care Provider: Dia Hanna Other Providers: Brent Dee Coding Level of Care Code 03627 INP/OBS DISCH >30 MIN Diagnoses Acute and chronic respiratory failure with hypoxia J96.21 Acute exacerbation of chronic obstructive pulmonary disease J44.1 Hyponatremia E87.1 Hypertension I10 Dependence on continuous supplemental oxygen Z99.81 GERD (gastroesophageal reflux disease) K21.9 Tobacco use disorder F17.200 Time Spent (min) 35
--- NOTE | 2023-02-23 07:12 | Electrocardiogram Report ---
Test Reason : Blood Pressure : / mmHG Vent. Rate : 103 BPM Atrial Rate : 103 BPM P-R Int : 188 ms QRS Dur : 086 ms QT Int : 356 ms P-R-T Axes : 061 -11 054 degrees QTc Int : 466 ms Sinus tachycardia Nonspecific ST and T wave abnormality Abnormal ECG When compared with ECG of 28-APR-2022 02:32, QT has lengthened Premature atrial complexes are no longer Present Confirmed by Trevor Rocha ([id number]) on 02/23/2023 7:12:42 AM Referred By: REFERRED SELF Confirmed By:Trevor Rocha
--- NOTE | 2023-02-23 21:26 | Electrocardiogram Report ---
Test Reason : Blood Pressure : / mmHG Vent. Rate : 103 BPM Atrial Rate : 103 BPM P-R Int : 184 ms QRS Dur : 084 ms QT Int : 350 ms P-R-T Axes : 047 -24 070 degrees QTc Int : 458 ms Sinus tachycardia with Premature atrial complexes Nonspecific ST and T wave abnormality Abnormal ECG When compared with ECG of 19-FEB-2023 11:42, Premature atrial complexes are now Present Confirmed by Trevor Rocha ([id number]) on 02/23/2023 9:26:05 PM Referred By: REFERRED SELF Confirmed By:Trevor Rocha
== END 2023-02-22 17:24 | disposition home or self-care (01) | DRG 190 ==
LOC: ED 11:35 → 2N 15:49 → SUATTDRO 15:49 → 2N 18:00

== ENCOUNTER 2025-02-07 20:00 | Inpatient (IN) ==
[2025-02-07] MEDS: NOREPINEPHRINE/D5W 4 MG/250 ML PLCT IV SCH (20:01)
[2025-02-07] MEDS: fentaNYL citrate 2,500 MCG/250 ML BAG IV SCH (20:07)
--- NOTE | 2025-02-07 20:20 | Emergency Department Note ---
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 Not Detected (NotDetected) C. pneumoniae DNA (PCR) Not Detected (NotDetected) Coronavirus OC43 (PCR) Not Detected (NotDetected) Coronavirus HKU1 (PCR) Not Detected (NotDetected) Coronavirus 229E (PCR) Not Detected (NotDetected) SARS-CoV-2 (PCR) Not Detected (NotDetected) Coronavirus NL63 (PCR) Not Detected (NotDetected) Human Metapneumovir PCR Not Detected (NotDetected) Influenza Type A (PCR) Not Detected (NotDetected) Influenza Type B (PCR) Not Detected (NotDetected) M. pneumoniae (PCR) Not Detected (NotDetected) Parainfluenza 1 (PCR) Not Detected (NotDetected) Parainfluenza 2 (PCR) Not Detected (NotDetected) Parainfluenza 3 (PCR) Not Detected (NotDetected) Parainfluenza 4 (PCR) Not Detected (NotDetected) RSV (PCR) Not Detected (NotDetected) Entero/Rhino (PCR) Not Detected (NotDetected) Administered Medications Norepinephrine Bitartrate (Levophed/D5w) 4 mg in 250 mls @ 12.469 mls/hr IV .Q20H3M [facility]; Protocol Stop: 03/09/25 20:29 Last Admin: 02/07/25 20:01 Dose: 0.05 mcg/kg/min, 12.5 mls/hr Documented By: DORINDA Co-signed By: GERBER Fentanyl Citrate (Fentanyl Citrate) 2,500 mcg in 250 mls @ 5 mls/hr IV .Q50H [place]; Protocol Stop: 02/21/25 20:29 Last Titration: 02/07/25 21:37 Dose: 50 mcg/hr, 5 mls/hr Documented By: DORINDA Co-signed By: EMB Admin: 02/07/25 20:07 Dose: 25 mcg/hr, 2.5 mls/hr Documented By: DORINDA Co-signed By: GERBER Azithromycin (Zithromax) 500 mg in 255 mls @ 127.5 mls/hr IV NOW ONE Stop: 02/08/25 02:14 Last Admin: 02/08/25 00:49 Dose: 127.5 mls/hr Documented By: FRANCOISE Discontinued Medications Budesonide (Budesonide 0.5 Mg/2 Ml Vial (Pulmicort)) 0.5 mg NEB NOW STA Stop: 02/08/25 00:00 Last Admin: 02/08/25 00:11 Dose: 0.5 mg Documented By: MITCHELL Formoterol Fumarate (Formoterol 20 Mcg/2 Ml Vial) 20 mcg NEB ONCE ONE Stop: 02/08/25 00:02 Last Admin: 02/08/25 00:11 Dose: 20 mcg Documented By: MITCHELL Cefepime HCl (Maxipime 2000mg) 2,000 mg in 20 mls @ 5 mls/min IV NOW STA; Protocol Stop: 02/07/25 20:26 Last Admin: 02/07/25 20:31 Dose: 5 mls/min Documented By: DORINDA Ioversol (Optiray 320 100ml) 120 ml IV ONCE ONE Stop: 02/07/25 21:31 Last Admin: 02/07/25 21:30 Dose: 120 ml Documented By: ALFRED Miscellaneous (Stat Iv Infusion Titration Per Protocol) 1 each N/A NOW STA Stop: 02/07/25 20:21 Last Admin: 02/07/25 22:03 Dose: Not Given Documented By: DORINDA Imaging Data Radiologist's Impression: Chest CTA 02/07/25 20:20 CR Exam(s): CTA CHEST IV Amt: 120ml EXAM: CT Chest With Intravenous Contrast CLINICAL HISTORY: Evaluate for potential PE. TECHNIQUE: Axial computed tomographic images of the chest with intravenous contrast. CTDI is 37.95 mGy and DLP is 702.46 mGy-cm. Automated exposure control was utilized for the study. A dose lowering technique was utilized adhering to the principles of ALARA. COMPARISON: No relevant prior studies available. FINDINGS: Pulmonary arteries: Accounting for limitations with diffuse respiratory artifact, there is no definite evidence for pulmonary embolism. Aorta: Atherosclerotic disease. No thoracic aortic aneurysm. Lungs: Centrilobular emphysema noted. There is patchy opacities in the dependent right lower lobe and posterior aspect of the inferior right upper lobe with asymmetric interlobular septal thickening and peribronchial cuffing. Curvilinear presumed atelectasis or scarring involving the posterior aspect of the left upper lobe adjacent to the major fissure. Pleural space: Small volume pneumothorax noted anteriorly throughout the left lung with some extension to the subpleural space. The degree of pneumothorax is estimated at less than 5%. Small volume layering right pleural effusion measuring approximately 1 cm. No loculation. Heart: Cardiomegaly. Extensive coronary artery calcification. Mediastinum: No mediastinal soft tissue injury identified. Bones/joints: There is acute angulation involving the anterolateral right 2nd through 9th ribs with minimal displacement of the lateral right 5th rib. There is acute angulation involving the anterolateral left 3rd through 9th ribs. No vertebral body fracture. Evaluation for sternal fracture is somewhat limited by respiratory artifact. No appreciable surrounding soft tissue injury. No dislocation. Soft tissues: No significant overlying soft tissue abnormality. Lymph nodes: Unremarkable. No enlarged lymph nodes. Tubes, lines and devices: The endotracheal tube (ETT) is in satisfactory position with tip 4.4 cm above the vida. Nasogastric tube tip in the stomach. IMPRESSION: 1. Small volume pneumothorax noted anteriorly throughout the left lung with some extension to the subpleural space. The degree of pneumothorax is estimated at less than 5%. Bilateral rib fractures, as noted above. 2. Accounting for limitations with diffuse respiratory artifact, there is no definite evidence for pulmonary embolism. No 3D or MIP imaging provided. 3. There is patchy opacities in the dependent right lower lobe and posterior aspect of the inferior right upper lobe with asymmetric interlobular septal thickening and peribronchial cuffing. In the setting of traumatic injury, favor contusive injury over pneumonia. 4. Small volume layering right pleural effusion measuring approximately 1 cm. No loculation. Communications: Call Doctor Pneumothorax Electronically signed by: Baldev Song MD 02/07/25 22:05 PM Chest X-Ray 02/07/25 20:20 Exam(s): XR CXR 1 VIEW EXAM: XR Chest, 1 View CLINICAL HISTORY: Sepsis. TECHNIQUE: Frontal view of the chest. COMPARISON: No relevant prior studies available. FINDINGS: Lungs: Asymmetric reticulonodular interstitial changes throughout the right lung with subsegmental right perihilar and lower lung zone airspace opacities. The left lung is clear. Pleural space: No definite pleural effusion or pneumothorax. Heart: The cardiac silhouette is slightly prominent, although presumed accentuated by portable technique. Mediastinum: The mediastinal contours are unremarkable. No widening. No tracheal deviation. Bones/joints: Unremarkable. No acute fracture. Tubes, lines and devices: The endotracheal tube (ETT) is in satisfactory position with tip 3.2 cm above the vida. IMPRESSION: Asymmetric reticulonodular interstitial changes throughout the right lung with subsegmental right perihilar and lower lung zone airspace opacities. Given the asymmetric appearance, the differential considerations include pneumonia or reactive changes from subtle aspiration. No definite pleural effusion or pneumothorax, accounting for supine technique. Electronically signed by: Baldev Song MD 02/07/25 21:[address] 02/07/25 20:20 CR Exam(s): CT HEAD Without Contrast EXAM: CT Head Without Intravenous Contrast CLINICAL HISTORY: Reason for exam: cardiac arrest, concern for hypoxic injury. TECHNIQUE: Axial computed tomography images of the head/brain without intravenous contrast. CTDI is 37.95 mGy and DLP is 702.49 mGy-cm. Automated exposure control was utilized for the study. A dose lowering technique was utilized adhering to the principles of ALARA. COMPARISON: 10/10/20 FINDINGS: Brain: Loss of the castillo-white differentiation suggesting anoxic/hypoxic insult. No gross intracranial hemorrhage. No midline shift. Ventricles: No hydrocephalus. Bones/joints: No acute fracture. Soft tissues: Unremarkable. Sinuses: No acute sinusitis. Mastoid air cells: No mastoid effusion. Orbits: No acute process. IMPRESSION: Loss of the castillo-white differentiation suggesting anoxic/hypoxic insult. Communications: Call Doctor Other Electronically signed by: Pipe Ruby M.D. 02/07/25 21:57 PM KUB X-Ray 02/07/25 20:20 Exam(s): XR KUB EXAM: XR Abdomen, 1 View CLINICAL HISTORY: ogt. TECHNIQUE: Frontal supine view of the abdomen/pelvis. COMPARISON: No relevant prior studies available. FINDINGS: Gastrointestinal tract: Nonspecific bowel gas pattern. No dilation. Bones/joints: Unremarkable. No acute fracture. Vasculature: Arterial calcification involving the splenic artery and atherosclerotic changes of the aorta. Tubes, lines and devices: The nasogastric tube terminates in the left upper quadrant with the side poor near the gastroesophageal junction. IMPRESSION: The nasogastric tube terminates in the left upper quadrant with the side poor near the gastroesophageal junction. The tip is presumed in the proximal body of the stomach. Electronically signed by: Baldev Song MD 02/07/25 21:57 PM Discharge Plan Visit Data Chief Complaint: Cardiac Arrest/CPR ED Provider: Roberto Redmond Discharge Problem: Cardiac arrest, Shock, Respiratory arrest, Acute respiratory failure with hypoxia and hypercapnia, Acidosis, lactic, Mixed acid base balance disorder, Multiple rib fractures, Pneumothorax, Anoxic brain injury Patient Disposition: Admitted As Inpatient Condition: Critical Discharge Instructions Interventions: ED Discharge Assessment Last Done: 02/08/25 00:23
[2025-02-07] MEDS: CEFEPIME 2000MG 2,000 MG/20 ML SYR IV STA (20:31)
[2025-02-07 20:46] LABS: Base Excess VBG -5.0 mEq/L; HCO3 VBG 27 mmol/L; Oxygen Saturation VBG 88.9 %; PCO2 VBG 89 mmHg (38-50); PO2 VBG 67 mmHg; pH VBG 7.09 (7.36-7.41)
[2025-02-07 20:46] LABS: Hematocrit (blood only) 36.5 % (37.0-47.0); Hemoglobin 10.8 g/dl (12.0-16.0); Immature Granulocytes # (auto) 0.81 K/uL (0.01-0.20); Immature Granulocytes % (auto) 4.6 %; Mean Corpuscular Hemoglobin 26.8 pg (25.0-34.0); Mean Corpuscular Volume 90.6 fL (80.0-100.0); Platelet Count 188 K/uL (130-400); RDW Standard Deviation 41.9 fL (36.4-46.3); Red Blood Count 4.03 M/uL (4.20-5.40); White Blood Count 17.48 K/ul (4.8-10.8)
[2025-02-07 20:46] LABS: Appearance Urine Clear (Clear); Bacteria Urine Automated 4+ (None Seen); Epithelial Cell Urine Auto 0-2 /hpf (0-2); Glucose Urine UA Negative (Negative); RBC Urine Automated 0-2 /hpf (0-2)
[2025-02-07 20:55] LABS: INR 1.1 (0.9-1.1); Partial Thromboplastin Time 32 Seconds (21-31); Prothrombin Time 12.1 Seconds (9.0-12.0)
[2025-02-07 21:14] LABS: Alanine Aminotransferase 102 U/L (7-52); Alkaline Phosphatase 104 U/L (34-104); Anion Gap 12 (3-11); Bilirubin,Total 0.4 mg/dl (0.2-1.0); Blood Urea Nitrogen 15 mg/dl (6-23); Calcium 8.7 mg/dl (8.6-10.3); Carbon Dioxide 27 mmol/L (21-32); Chloride 93 mmol/L (98-107); Glucose 378 mg/dl (70-99(Fasting)); Magnesium 2.0 mg/dl (1.7-2.4); Potassium 4.8 mmol/L (3.5-5.1); Sodium 132 mmol/L (136-145); Total Protein 5.9 gm/dl (6.0-8.3)
[2025-02-07] MEDS: OPTIRAY 320 100ml IV ONE (21:30)
[2025-02-07 21:32] LABS: Chlamydia pneumoniae PCR Not Detected (NotDetected); Coronavirus 229E PCR Not Detected (NotDetected); Coronavirus CoV-2 (COVID19)PCR Not Detected (NotDetected); Coronavirus HKU1 PCR Not Detected (NotDetected); Coronavirus NL63 PCR Not Detected (NotDetected); Coronavirus OC43PCR Not Detected (NotDetected); Human Metapneumovirus PCR Not Detected (NotDetected); Parainfluenza Virus 1 PCR Not Detected (NotDetected); Parainfluenza Virus 2 PCR Not Detected (NotDetected); Parainfluenza Virus 3 PCR Not Detected (NotDetected); Parainfluenza Virus 4 PCR Not Detected (NotDetected); Respiratory Syncytial VirusPCR Not Detected (NotDetected); Rhinovirus/Enterovirus PCR Not Detected (NotDetected)
--- NOTE | 2025-02-07 21:57 | CT Scan Report ---
Exam(s): CT HEAD Without Contrast EXAM: CT Head Without Intravenous Contrast CLINICAL HISTORY: Reason for exam: cardiac arrest, concern for hypoxic injury. TECHNIQUE: Axial computed tomography images of the head/brain without intravenous contrast. CTDI is 37.95 mGy and DLP is 702.49 mGy-cm. Automated exposure control was utilized for the study. A dose lowering technique was utilized adhering to the principles of ALARA. COMPARISON: 10/10/20 FINDINGS: Brain: Loss of the castillo-white differentiation suggesting anoxic/hypoxic insult. No gross intracranial hemorrhage. No midline shift. Ventricles: No hydrocephalus. Bones/joints: No acute fracture. Soft tissues: Unremarkable. Sinuses: No acute sinusitis. Mastoid air cells: No mastoid effusion. Orbits: No acute process. IMPRESSION: Loss of the castillo-white differentiation suggesting anoxic/hypoxic insult. Communications: Call Doctor Other Electronically signed by: Pipe Ruby M.D. 02/07/25 21:57 PM
--- NOTE | 2025-02-07 21:57 | XRay Report ---
Exam(s): XR CXR 1 VIEW EXAM: XR Chest, 1 View CLINICAL HISTORY: Sepsis. TECHNIQUE: Frontal view of the chest. COMPARISON: No relevant prior studies available. FINDINGS: Lungs: Asymmetric reticulonodular interstitial changes throughout the right lung with subsegmental right perihilar and lower lung zone airspace opacities. The left lung is clear. Pleural space: No definite pleural effusion or pneumothorax. Heart: The cardiac silhouette is slightly prominent, although presumed accentuated by portable technique. Mediastinum: The mediastinal contours are unremarkable. No widening. No tracheal deviation. Bones/joints: Unremarkable. No acute fracture. Tubes, lines and devices: The endotracheal tube (ETT) is in satisfactory position with tip 3.2 cm above the vida. IMPRESSION: Asymmetric reticulonodular interstitial changes throughout the right lung with subsegmental right perihilar and lower lung zone airspace opacities. Given the asymmetric appearance, the differential considerations include pneumonia or reactive changes from subtle aspiration. No definite pleural effusion or pneumothorax, accounting for supine technique. Electronically signed by: Baldev Song MD 02/07/25 21:56 PM
--- NOTE | 2025-02-07 21:58 | XRay Report ---
Exam(s): XR KUB EXAM: XR Abdomen, 1 View CLINICAL HISTORY: ogt. TECHNIQUE: Frontal supine view of the abdomen/pelvis. COMPARISON: No relevant prior studies available. FINDINGS: Gastrointestinal tract: Nonspecific bowel gas pattern. No dilation. Bones/joints: Unremarkable. No acute fracture. Vasculature: Arterial calcification involving the splenic artery and atherosclerotic changes of the aorta. Tubes, lines and devices: The nasogastric tube terminates in the left upper quadrant with the side poor near the gastroesophageal junction. IMPRESSION: The nasogastric tube terminates in the left upper quadrant with the side poor near the gastroesophageal junction. The tip is presumed in the proximal body of the stomach. Electronically signed by: Baldev Song MD 02/07/25 21:57 PM
[2025-02-07] MEDS: STAT IV Infusion **Titration per Protocol STA (22:03)
--- NOTE | 2025-02-07 22:06 | CT Scan Report ---
Exam(s): CTA CHEST IV Amt: 120ml EXAM: CT Chest With Intravenous Contrast CLINICAL HISTORY: Evaluate for potential PE. TECHNIQUE: Axial computed tomographic images of the chest with intravenous contrast. CTDI is 37.95 mGy and DLP is 702.46 mGy-cm. Automated exposure control was utilized for the study. A dose lowering technique was utilized adhering to the principles of ALARA. COMPARISON: No relevant prior studies available. FINDINGS: Pulmonary arteries: Accounting for limitations with diffuse respiratory artifact, there is no definite evidence for pulmonary embolism. Aorta: Atherosclerotic disease. No thoracic aortic aneurysm. Lungs: Centrilobular emphysema noted. There is patchy opacities in the dependent right lower lobe and posterior aspect of the inferior right upper lobe with asymmetric interlobular septal thickening and peribronchial cuffing. Curvilinear presumed atelectasis or scarring involving the posterior aspect of the left upper lobe adjacent to the major fissure. Pleural space: Small volume pneumothorax noted anteriorly throughout the left lung with some extension to the subpleural space. The degree of pneumothorax is estimated at less than 5%. Small volume layering right pleural effusion measuring approximately 1 cm. No loculation. Heart: Cardiomegaly. Extensive coronary artery calcification. Mediastinum: No mediastinal soft tissue injury identified. Bones/joints: There is acute angulation involving the anterolateral right 2nd through 9th ribs with minimal displacement of the lateral right 5th rib. There is acute angulation involving the anterolateral left 3rd through 9th ribs. No vertebral body fracture. Evaluation for sternal fracture is somewhat limited by respiratory artifact. No appreciable surrounding soft tissue injury. No dislocation. Soft tissues: No significant overlying soft tissue abnormality. Lymph nodes: Unremarkable. No enlarged lymph nodes. Tubes, lines and devices: The endotracheal tube (ETT) is in satisfactory position with tip 4.4 cm above the vida. Nasogastric tube tip in the stomach. IMPRESSION: 1. Small volume pneumothorax noted anteriorly throughout the left lung with some extension to the subpleural space. The degree of pneumothorax is estimated at less than 5%. Bilateral rib fractures, as noted above. 2. Accounting for limitations with diffuse respiratory artifact, there is no definite evidence for pulmonary embolism. No 3D or MIP imaging provided. 3. There is patchy opacities in the dependent right lower lobe and posterior aspect of the inferior right upper lobe with asymmetric interlobular septal thickening and peribronchial cuffing. In the setting of traumatic injury, favor contusive injury over pneumonia. 4. Small volume layering right pleural effusion measuring approximately 1 cm. No loculation. Communications: Call Doctor Pneumothorax Electronically signed by: Baldev Song MD 02/07/25 22:05 PM
[2025-02-07] MEDS ORDERED: GLUCOSE 40% GEL 15 GM TUBE PO PRN (23:56)
[2025-02-07] MEDS ORDERED: GLUCAGON FOR INJ 1 MG VIAL SQ PRN (23:56)
[2025-02-07] MEDS ORDERED: GLUCOSE 10 TAB/TUBE PO PRN (23:56)
[2025-02-07] MEDS ORDERED: DEXTROSE 50% 50 ML SYRINGE IV PRN (23:56)
[2025-02-07] MEDS ORDERED: CARBOHYDRATES FOR HYPOGLYCEMIA PO PRN (23:56)
--- NOTE | 2025-02-07 23:58 | Critical Care Consultation ---
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 prior studies available. FINDINGS: Lungs: Asymmetric reticulonodular interstitial changes throughout the right lung with subsegmental right perihilar and lower lung zone airspace opacities. The left lung is clear. Pleural space: No definite pleural effusion or pneumothorax. Heart: The cardiac silhouette is slightly prominent, although presumed accentuated by portable technique. Mediastinum: The mediastinal contours are unremarkable. No widening. No tracheal deviation. Bones/joints: Unremarkable. No acute fracture. Tubes, lines and devices: The endotracheal tube (ETT) is in satisfactory position with tip 3.2 cm above the vida. IMPRESSION: Asymmetric reticulonodular interstitial changes throughout the right lung with subsegmental right perihilar and lower lung zone airspace opacities. Given the asymmetric appearance, the differential considerations include pneumonia or reactive changes from subtle aspiration. No definite pleural effusion or pneumothorax, accounting for supine technique. Electronically signed by: Baldev Song MD 02/07/25 21:[address] 02/07/25 20:20 CR Exam(s): CT HEAD Without Contrast EXAM: CT Head Without Intravenous Contrast CLINICAL HISTORY: Reason for exam: cardiac arrest, concern for hypoxic injury. TECHNIQUE: Axial computed tomography images of the head/brain without intravenous contrast. CTDI is 37.95 mGy and DLP is 702.49 mGy-cm. Automated exposure control was utilized for the study. A dose lowering technique was utilized adhering to the principles of ALARA. COMPARISON: 10/10/20 FINDINGS: Brain: Loss of the castillo-white differentiation suggesting anoxic/hypoxic insult. No gross intracranial hemorrhage. No midline shift. Ventricles: No hydrocephalus. Bones/joints: No acute fracture. Soft tissues: Unremarkable. Sinuses: No acute sinusitis. Mastoid air cells: No mastoid effusion. Orbits: No acute process. IMPRESSION: Loss of the castillo-white differentiation suggesting anoxic/hypoxic insult. Communications: Call Doctor Other Electronically signed by: Pipe Ruby M.D. 02/07/25 21:57 PM KUB X-Ray 02/07/25 20:20 Exam(s): XR KUB EXAM: XR Abdomen, 1 View CLINICAL HISTORY: ogt. TECHNIQUE: Frontal supine view of the abdomen/pelvis. COMPARISON: No relevant prior studies available. FINDINGS: Gastrointestinal tract: Nonspecific bowel gas pattern. No dilation. Bones/joints: Unremarkable. No acute fracture. Vasculature: Arterial calcification involving the splenic artery and atherosclerotic changes of the aorta. Tubes, lines and devices: The nasogastric tube terminates in the left upper quadrant with the side poor near the gastroesophageal junction. IMPRESSION: The nasogastric tube terminates in the left upper quadrant with the side poor near the gastroesophageal junction. The tip is presumed in the proximal body of the stomach. Electronically signed by: Baldev Song MD 02/07/25 21:57 PM Medications Administered Norepinephrine Bitartrate (Levophed/D5w) 4 mg in 250 mls @ 12.469 mls/hr IV .Q20H3M [facility]; Protocol Stop: 03/09/25 20:29 Last Admin: 02/07/25 20:01 Dose: 0.05 mcg/kg/min, 12.5 mls/hr Documented By: DORINDA Co-signed By: GERBER Fentanyl Citrate (Fentanyl Citrate) 2,500 mcg in 250 mls @ 5 mls/hr IV .Q50H [facility]; Protocol Stop: 02/21/25 20:29 Last Titration: 02/07/25 21:37 Dose: 50 mcg/hr, 5 mls/hr Documented By: DORINDA Co-signed By: ALEIDA Admin: 02/07/25 20:07 Dose: 25 mcg/hr, 2.5 mls/hr Documented By: DORINDA Co-signed By: LAF Discontinued Medications Cefepime HCl (Maxipime 2000mg) 2,000 mg in 20 mls @ 5 mls/min IV NOW STA; Protocol Stop: 02/07/25 20:26 Last Admin: 02/07/25 20:31 Dose: 5 mls/min Documented By: DORINDA Ioversol (Optiray 320 100ml) 120 ml IV ONCE ONE Stop: 02/07/25 21:31 Last Admin: 02/07/25 21:30 Dose: 120 ml Documented By: ALFRED Miscellaneous (Stat Iv Infusion Titration Per Protocol) 1 each N/A NOW STA Stop: 02/07/25 20:21 Last Admin: 02/07/25 22:03 Dose: Not Given Documented By: DORINDA Coding Level of Care Code 49051 CRITICAL CARE 1ST 30-74M Diagnoses 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
[2025-02-07] MEDS ORDERED: ALBUTEROL 0.083% NEBU SOLN 3 ML VIAL NEB PRN (23:59)
[2025-02-08] MEDS: FORMOTEROL 20 MCG/2 ML VIAL NEB ONE (00:11)
[2025-02-08] MEDS: BUDESONIDE 0.5 MG/2 ML VIAL (PULMICORT) NEB STA (00:11)
[2025-02-08] MEDS ORDERED: ARTIFICIAL TEARS OPB PRN (00:23)
[2025-02-08] MEDS ORDERED: GLUCOSE 10 TAB/TUBE PO PRN (00:39)
[2025-02-08] MEDS ORDERED: CARBOHYDRATES FOR HYPOGLYCEMIA PO PRN (00:39)
[2025-02-08] MEDS ORDERED: DEXTROSE 50% 50 ML SYRINGE IV PRN (00:39)
[2025-02-08] MEDS ORDERED: GLUCAGON FOR INJ 1 MG VIAL SQ PRN (00:39)
[2025-02-08] MEDS ORDERED: GLUCOSE 40% GEL 15 GM TUBE PO PRN (00:39)
[2025-02-08] MEDS: AZITHROMYCIN 500 MG/255 ML BAG IV ONE (00:49)
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
[2025-02-08] MEDS: INSULIN ASPART PER UNIT CHARGE SC SCH (00:58)
--- NOTE | 2025-02-08 01:05 | Billing Data ---
Date of Service February 08, 2025 Coding Level of Care Code 25540 CRITICAL CARE
[2025-02-08 01:25] LABS: Base Excess VBG 4.5 mEq/L; HCO3 VBG 32 mmol/L; Oxygen Saturation VBG 65.7 %; PCO2 VBG 61 mmHg (38-50); PO2 VBG 35 mmHg; pH VBG 7.33 (7.36-7.41)
[2025-02-08 04:59] LABS: Base Excess VBG 5.0 mEq/L; HCO3 VBG 32 mmol/L; Oxygen Saturation VBG 61.8 %; PCO2 VBG 55 mmHg (38-50); PO2 VBG 33 mmHg; pH VBG 7.37 (7.36-7.41)
[2025-02-08 05:19] LABS: Anion Gap 9.0 (3-11); Blood Urea Nitrogen 25.0 mg/dl (6-23); Calcium 8.6 mg/dl (8.6-10.3); Carbon Dioxide 30.0 mmol/L (21-32); Chloride 94.0 mmol/L (98-107); Creatinine Clr Calc Pharmacy 34.6 ml/min; Glucose 214.0 mg/dl (70-99(Fasting)); Magnesium 1.6 mg/dl (1.7-2.4); Potassium 4.3 mmol/L (3.5-5.1); Sodium 133.0 mmol/L (136-145)
[2025-02-08 05:41] LABS: Hematocrit (blood only) 33.3 % (37.0-47.0); Hemoglobin 10.4 g/dl (12.0-16.0); Mean Corpuscular Hemoglobin 27.1 pg (25.0-34.0); Mean Corpuscular Volume 86.7 fL (80.0-100.0); Platelet Count 217 K/uL (130-400); RDW Standard Deviation 40.6 fL (36.4-46.3); Red Blood Count 3.84 M/uL (4.20-5.40); White Blood Count 18.40 K/ul (4.8-10.8)
[2025-02-08 05:42] LABS: Immature Granulocytes # (auto) 0.12 K/uL (0.01-0.20); Immature Granulocytes % (auto) 0.7 %; Polychromasia 1+
[2025-02-08] MEDS: BUDESONIDE 0.5 MG/2 ML VIAL (PULMICORT) NEB SCH (07:10)
[2025-02-08] MEDS: FORMOTEROL 20 MCG/2 ML VIAL NEB SCH (07:10)
[2025-02-08] MEDS: CEFEPIME 1000MG 1,000 MG/10 ML SYR IV SCH (08:03)
[2025-02-08] MEDS ORDERED: methylPREDNISolone 10 mg/mL (For Ped Dose < 7mg) IV SCH (09:00)
[2025-02-08 10:02] LABS: A calco-baum cmplx NotReported Not Detected (NotDetected); Bact fragilis Not Reported Not Detected (NotDetected); Blood Culture Id Panel PCR Panel Negative (NotDetected); C auris Not Reported Not Detected (NotDetected); Calbicans Not Reported Not Detected (NotDetected); Candida glabrata Not Reported Not Detected (NotDetected); Candida krusei Not Reported Not Detected (NotDetected); Cneoformans/gatti Not Reported Not Detected (NotDetected); Cparapsilosis Not Reported Not Detected (NotDetected); Ctropicalis Not Reported Not Detected (NotDetected); E cloacae compx Not Reported Not Detected (NotDetected); Efaecalis Not Reported Not Detected (NotDetected); Efaecium Not Reported Not Detected (NotDetected); Enterobacterales Not Reported Not Detected (NotDetected); Escherichia coli Not Reported Not Detected (NotDetected); H influenzae Not Reported Not Detected (NotDetected); K aerogenes Not Reported Not Detected (NotDetected); Koxytoca Not Reported Not Detected (NotDetected); Kpneumoniae grp Not Reported Not Detected (NotDetected); Lmonocyt Not Reported Not Detected (NotDetected); N meningitidis Not Reported Not Detected (NotDetected); P aeruginosa Not Reported Not Detected (NotDetected); Proteus spp Not Reported Not Detected (NotDetected); Salmonella spp Not Reported Not Detected (NotDetected); Staph lugdunensis Not Reported Not Detected (NotDetected); Staph spp. Not Reported Not Detected (NotDetected); Staphaureus Not Reported Not Detected (NotDetected); Staphepi Not Reported Not Detected (NotDetected); Stenmaltophilia Not Reported Not Detected (NotDetected); Strep agal(GrpB) Not Reported Not Detected (NotDetected); Strep pneum Not Reported Not Detected (NotDetected); Strep pyog (GrpA) Not Reported Not Detected (NotDetected); Strep spp Not Reported Not Detected (NotDetected)
[2025-02-08] MEDS ORDERED: ONDANSETRON INJ 2 MG/ML 2 ML VIAL IV PRN (10:46)
[2025-02-08] MEDS ORDERED: HALOPERIDOL ORAL SOLN 2 MG/ML PO PRN (10:46)
[2025-02-08] MEDS ORDERED: ATROPINE SULFATE 1% OP SOLN 5 ML BTL SL PRN (10:46)
[2025-02-08] MEDS: MoRPHine SULFATE 2 MG/ML CARP IV PRN (11:51)
[2025-02-08] MEDS: GLYCOPYRROLATE 0.2 MG/ML VIAL IV PRN (11:51)
--- NOTE | 2025-02-08 13:08 | Discharge Summary ---
Discharge Summary Date of Service February 08, 2025 Principal Dx & Hospital Course #1 = Principal Diagnosis Admission HPI Per Admitting Provider The patient is a 74-year-old female with a past medical history including end- stage COPD, chronic hypoxic respiratory failure, esophagitis, GERD, vitamin D deficiency, tobacco use disorder, PAD, migraine headache with aura, nicotine dependence, chronic hyponatremia, vocal cord polyps, neuropathic bilateral leg pain, anxiety and depression, and elevated cholesterol. EMS was called to the patient's home due to unresponsiveness. Patient's did perform CPR until EMS arrived, and they again performed CPR and gave epinephrine. The patient was transferred from i-gel to ET tube, and continued to have resuscitation efforts while in the emergency department. Patient was transferred to the ICU for ongoing treatment, where she received Solu-Medrol 125 mg IV, cefepime 2 g IV, azithromycin 5 mg IV, and was continued on Levophed and fentanyl infusions. Discharge Plan Discharge Items Reason For Visit: CARDIAC ARREST Condition on Discharge: Critical Follow-up/Referrals: Dia Hanna CRNP [Primary Care Provider] - Medications and DC Order Prescriptions: No Action (DME) Oxygen Home Liters Per Minute See Rx Instructions .MEDSUPPLY Qty: 1 0RF Rx Instructions: Oxygen at 4 l/m via n/c continuously. Concentrator, portable tanks, tubing, supplies. Lifetime need. (DME) M6 oxygen tank with conserving device See Rx Instructions .Route .MEDSUPPLY Qty: 1 0RF Rx Instructions: As directed (DME) Portable Oxygen Misc See Rx Instructions .Route Qty: 1 0RF Rx Instructions: Portable Oxygen Concentrator Uses 4 L/min via NC continuously Dx:J44.9; Z99.81 (DME) nebulizer accessories Kit See Rx Instructions .Route Qty: 1 3RF Rx Instructions: As directed (DME) nebulizers Misc See Rx Instructions .Route Qty: 1 0RF Rx Instructions: Nebulizer and nebulizer kits LON99 -ELECTRICAL SIGN WIRER Trelegy Ellipta 200-62.5-25 mcg blister with device 1 inh inhalation QPM Qty: 60 3RF famotidine 40 mg tablet 40 mg PO BID Qty: 60 11RF gabapentin 100 mg capsule See Rx Instructions .ROUTE .COMPLEX Qty: 450 3RF Dose Instruction: TAKE 2 CAPSULES IN THE MORNING, 1 CAPSULE AT NOON, AND 2 CAPSULES IN THE EVENING. Patient Comments: takes PRN Rx Instructions: TAKE 2 CAPSULES IN THE MORNING, 1 CAPSULE AT NOON, AND 2 CAPSULES IN THE EVENING. atorvastatin 40 mg tablet 40 mg PO QPM Qty: 90 3RF losartan 100 mg tablet 100 mg PO QAM Qty: 90 3RF pantoprazole 40 mg tablet,delayed release (DR/EC) 40 mg PO BID 30 Days Qty: 60 5RF pantoprazole [Protonix] 40 mg tablet,delayed release (DR/EC) 40 mg PO BID Qty: 180 1RF amlodipine 10 mg tablet 10 mg PO QPM Qty: 90 3RF albuterol sulfate [Ventolin HFA] 90 mcg/actuation HFA aerosol inhaler See Rx Instructions INHALATION .COMPLEX PRN (Reason: Shortness Of Breath) Qty: 8.5 3RF Rx Instructions: 1-2 puffs INHALATION every 4-6 hours PRN; metoclopramide HCl 10 mg tablet 10 mg PO QID Qty: 180 3RF (DME) portable oxygen concentrator See Rx Instructions .Route .MEDSUPPLY Qty: 1 0RF Rx Instructions: on 4 L per nasal canula doxycycline monohydrate 100 mg capsule 100 mg PO BID Qty: 14 0RF montelukast [Singulair] 10 mg tablet 10 mg PO QPM Qty: 90 3RF Trelegy Ellipta 200-62.5-25 mcg blister with device 0RF clonidine HCl 0.1 mg tablet 0.1 mg PO BID Qty: 180 3RF ipratropium-albuterol 0.5 mg-3 mg(2.5 mg base)/3 mL solution for nebulization 3 ml inhalation QID PRN (Reason: wheezing) Qty: 180 3RF albuterol sulfate 2.5 mg /3 mL (0.083 %) solution for nebulization 2.5 mg inhalation QID PRN (Reason: shortness of breath or wheezing) Qty: 180 6RF Patient Comments: Pt does not use because it does not work for her diclofenac sodium 1 % gel 4 g topical QID Qty: 100 2RF Rx Instructions: apply to chest wall up to 4 x a day azithromycin 250 mg tablet 250 mg PO MOWEFR 30 Days Qty: 12 6RF Arexvy (PF) 120 mcg/0.5 mL suspension for reconstitution 0.5 ml IM ONCE Qty: 10 0RF sodium chloride 3 % solution for nebulization 4 ml inhalation BID PRN (Reason: secretions) Qty: 240 3RF guaifenesin [Mucinex] 1,200 mg tablet extended release 12hr 1,200 mg PO BID Qty: 60 3RF (DME) Flutter Valve Device See Rx Instructions .MEDSUPPLY Qty: 1 0RF Rx Instructions: As directed sucralfate [Carafate] 1 gram tablet 1 g PO ACHS Qty: 40 1RF Rx Instructions: mix one tablet with 15mls of water to make slurry then drink before meals and at bedtime. metoprolol succinate 100 mg tablet extended release 24 hr 100 mg PO QPM Qty: 90 3RF aspirin [Aspir-81] 81 mg tablet,delayed release (DR/EC) 81 mg PO QPM cholecalciferol (vitamin D3) [Vitamin D3] 5,000 unit tablet 5,000 unit PO QPM Admission Data Admit Date/Time: 02/07/25 22:55 Attending Provider: Brent Khan Admit Provider: Cesar Campbell Primary Care Provider: Dia Hanna Other Providers: Cesar Campbell; John Bashir; Berenice Cruz Hospital Stay Data Consultations 02/07/25 22:47 ED Decision to Admit Stat 02/07/25 23:52 Consult Respiratory Equipment Assistant Routine 02/08/25 10:47 Consult Palliative Care Routine Diagnostic Imagining Performed 02/07/25 20:20 CT for pulmonary embolism PE [CT angio chest PE protocol] Stat CT head/brain wo con Stat Coding
--- NOTE | 2025-02-08 13:08 | Death Pronouncement Note ---
Date of Service February 08, 2025 Pronouncement Note Admission Date February 07, 2025 Date and Time of Date of : 02/08/25 Time of : 12:12 Preliminary Cause of (1) Anoxic brain injury: Additional Data Confirmation of : no pulse, no respirations, no heart sounds and pupils fixed and dilated Pronouncement Performed By: Attending Physician Family: at bedside Attending/PCP notified?: Yes Attending physician: Brent Khan MD Was code activated?: No Autopsy requested?: No land title examiner notified?: No Organ bank notified?: Yes Coding Level of Care Code None Diagnoses Anoxic brain injury G93.1
[2025-02-08 13:10] VITALS: BP 0/0; PULSE 0; RESP 0; TEMP 96.8; O2SAT 0
[2025-02-08] MEDS ORDERED: DESTROY THIS MEDICATION ONE (13:10)
== END 2025-02-08 13:10 | disposition expired | DRG 208 ==
LOC: ED 20:00 → 1E 22:55 → SUATTDRO 22:55 → 1E 02-08 00:23